=== PATIENT | male | born 1945 | race Caucasian/White ===

== ENCOUNTER → 2023-12-26 09:00 | Outpatient (REF) | payer MEDICARE, OTHER, SELFPAY | LOC: DHSLP 09:00 | PROVIDERS: ATTENDING PHYSICIAN Internal Medicine Critical Care Medicine; FAMILY PHYSICIAN Nurse Practitioner | DX: G47.33 Obstructive sleep apnea (adult) (pediatric) (principal) | CPT/HCPCS: 95800 ==

== ENCOUNTER → 2024-03-27 13:46 | Outpatient (REF) | payer MEDICARE, OTHER, SELFPAY | LOC: RCS 13:46 | PROVIDERS: ATTENDING PHYSICIAN Internal Medicine Cardiovascular Disease; FAMILY PHYSICIAN Nurse Practitioner | DX: R06.02 Shortness of breath (principal) | CPT/HCPCS: 93306 ==

== ENCOUNTER → 2025-03-05 15:43 | Outpatient (REF) | payer MEDICARE, OTHER, SELFPAY | LOC: RAD 15:43 | PROVIDERS: ATTENDING PHYSICIAN Nurse Practitioner Adult Health; FAMILY PHYSICIAN Nurse Practitioner | DX: M47.814 Spondylosis without myelopathy or radiculopathy, thoracic region (principal); M48.062 Spinal stenosis, lumbar region with neurogenic claudication | CPT/HCPCS: 72072; 72110 ==

== ENCOUNTER 2025-03-18 22:47 | Inpatient (IN) | payer MEDICARE, OTHER, SELFPAY ==
[2025-03-18] VITALS (8 sets, daily range): BP systolic 108–175; BP diastolic 57–96; BMI 24.2
[2025-03-18 16:50] LABS: Hematocrit 43.6 % (39.0-52.0); Hemoglobin 14.1 g/dL (13.0-18.0); Mean Corp Hgb Conc. 32.3 g/dL (33.0-37.0); Mean Corpuscular Volume 79.4 fL (80.0-94.0); Nucleated Red Blood Cells % 0 % (-); Platelet Count 210 10^3/uL (130-400); Red Cell Dist. Width 14.7 % (11.5-14.5)
[2025-03-18 17:16] LABS: ALT (SGPT) 21 U/L (0-50); AST (SGOT) 34 U/L (17-59); Albumin 4.7 g/dl (3.5-5.0); Alkaline Phosphatase 103 U/L (38-126); Blood Urea Nitrogen 16 mg/dl (9-20); Calcium 10.1 mg/dl (8.4-10.2); Carbon Dioxide 22 mmol/L (22-30); Chloride 104 mmol/L (98-107); Glucose 216 mg/dl (70-99); Lipase 125 U/L (23-300); Potassium 5.2 mmol/L (3.5-5.1); Sodium 137 mmol/L (135-145); Total Protein 7.0 g/dl (6.3-8.2); eGFR > 60.00
[2025-03-18 17:19] LABS: Troponin I 0.050 ng/ml
--- NOTE | 2025-03-18 17:49 | ED.GENMED ---
History of Present Illness
<Sabino Lackey PA-C - Last Filed: 03/19/25 00:24>
General
Chief Complaint: Chest Pain
Time Seen by Provider: 03/18/25 17:36
History of Present Illness
History of Present Illness:
79-year-old male with history of CAD status post UT with cardiac stent x 2, hypertension, hyperlipidemia, and insulin-dependent diabetes presents to the emergency department for evaluation of left/central chest pain that began approximately 2 hours
prior to arrival. He states he just completed eating a sandwich and was watching TV when the pain began. He has had anginal symptoms in the past and has followed with his lip cutter and scorer through [facility] for this, it has been quite
sometime since he underwent any type of cardiac ischemic workup per his records that he provides at the bedside. Patient notes to me on my evaluation that his pain has since resolved within the past 10 to 15 minutes. He did take nitroglycerin as
well as an acids but did not feel as though these helped at home. No associated fevers or chills. Denies any acute shortness of breath but does have decreased exercise tolerance recently.
Past History
<Sabino Lackey PA-C - Last Filed: 03/19/25 00:24>
Past History
ED Past Medical History: CAD, Hypercholesterolemia, IDDM and Other (Kidney stones, coronary disease status post stent, chronic low back pain, diabetes)
ED Past Surgical History: Cardiac (stent)
Social History
Tobacco: Non-smoker
Alcohol: Occasional
Drug: None
Personal:
Living: with family
Family History
Family History: Other (He thinks his father had an episode of urinary retention in the past)
Review of Systems
<Sabino Lackey PA-C - Last Filed: 03/19/25 00:24>
Review of Systems
Allergies reviewed?: Yes
All Other Systems: ROS reviewed and negative except as documented in HPI and ROS
Phy Exam
<Sabino Lackey PA-C - Last Filed: 03/19/25 00:24>
Physical Exam
Physical Exam:
GEN: Well appearing, NAD, WDWN
HEENT: Oral mucosa moist, no scleral icterus
Cardiac: Regular rate and rhythm, no murmurs
Lung: No respiratory distress, no tachypnea, lungs clear to auscultation bilaterally
MSK: No gross deformity or injuries
Skin: Good color, no pallor or jaundice, no rashes
Neuro: AO x3, moves all extremities freely
Psych: Calm, cooperative
Scores
<Sabino Lackey PA-C - Last Filed: 03/19/25 00:24>
Heart Score for Chest Pain Patients
STEMI patient?: No
History: Slightly or Non-Suspicious
ECG: Nonspecific Repolarization
Age: >/= 65 years
Risk Factors: >/= 3 Risk Factors or History of CAD
Troponin: >/= 3 x Normal Limit
Heart Score for Chest Pain Patients: 7
Heart Score Risk: 72.7 % MACE over next 6 weeks
<Adriel Freeman MD - Last Filed: 03/19/25 10:13>
Heart Score for Chest Pain Patients
Heart Score for Chest Pain Patients: 7
Heart Score Risk: 72.7 % MACE over next 6 weeks
Course
<Sabino Lackey PA-C - Last Filed: 03/19/25 00:24>
Orders/Labs/Results
Orders:
Orders
03/18/25 16:22
Electrocardiogram (*1) Urgent
Reason for Study: Chest Pain
EKG- Treatment ONCE
03/18/25 16:39
Complete Blood Count/With Diff Urgent
Comprehensive Metabolic Panel Urgent
Lipase Urgent
Troponin I Urgent
03/18/25 17:40
Electrocardiogram (*1) Urgent
Reason for Study: Chest Pain
EKG- Treatment ONCE
03/18/25 17:51
Aspirin Chewable [Low Strength Aspirin] 324 mg PO NOW STA
03/18/25 20:03
Troponin I Urgent
03/18/25 20:49
Heparin 4,000 units IV NOW STA
Nursing to Place Non Medication Order As Directed
Physician Order: PTT 6 hours after initial start of Heparin infusion
Above order entered?: Yes
03/18/25 21:00
Heparin 52704 Units/250 ml 25,000 units in 250 ml IV PER PROTOCOL
Weight to be used for heparin protocol in kilograms (kg):: 76.4
Protocol:: Cardiac Tx/Acute Coronary
PTT Goal Range to be used:: PTT 73 to 111 seconds
Order type:: Initial
INITIAL Infusion Dose (UNITS/KG/hr) & then follow protocol:: 12 units/kg/hr
Infusion Dose in UNITS/hr & then follow protocol (UNITS/hr):: 900
INFUSION RATE in mL/hr & then follow protocol (mL/hr):: 9
PTT less than or equal to 64 seconds:: Increase rate by 200 units/hr (+ 2 mL/hr)
PTT 64.1 to 72.9 seconds:: Increase rate by 100 units/hr (+ 1 mL/hr)
PTT 73 to 111 seconds:: Target Range. No change in rate.
PTT 111.1 to 130.9 seconds:: Decrease rate by 100 units/hr (- 1 mL/hr)
PTT 131 to 199.9 seconds:: HOLD for 1 hr. Then decrease rate by 200 units/hr (- 2 mL/hr)
PTT greater than or equal to 200 seconds:: HOLD for 2 hrs & Notify Provider. Then decrease by 200 units/hr (-
2 mL/hr)
Lab follow-up:: Each change, PTT q6h until 2 consecutive are therapeutic. Then PTT
daily.
03/18/25 21:30
PTT Urgent
03/18/25 22:23
Admit/Transfer Patient As Directed
Co-Sign Provider:
Level of Care: Inpatient admission
Assign to:: IVU
Physician / Group: Nayely Bills - beccaists
Diagnosis: NSTEMI
Reason for Hospitalization: NSTEMI - IV heparin, cardiac eval for potential cath
Expected length of stay greater than two midnights?: Yes
ELOS- Estimated Length of Stay in days: 3
I certify the patient meets the requirements for IP care: Yes
PRN Pain Medication Management As Directed
May give lesser potent ordered pain med per pt: Yes
preference::
Protocol:: Medication orders for pain may be administered in a
manner that supports deferring to patient preference
when the pt is:
- Requesting an ordered lesser potent pain medication.
Least to most potent pain medications are defined
as: acetaminophen < NSAID < tramadol < opioids
(morphine, oxycodone, hydromorphone).
- Requesting a lesser dose of the same medication IF
ORDERED.
- Requesting a less intrusive route of administration
if both routes are prescribed by the provider (PO <
IV).
03/18/25 22:25
Code Status As Directed
Resuscitation Status: Full Code
03/18/25 23:25
Acetaminophen [Tylenol] 650 mg PO Q4HPRN PRN
Bisacodyl [Dulcolax] 10 mg RECTAL [id number] PRN
Dextrose 50%-Water [Dextrose 50% Syringe] 12.5 grams IV [id number] PRN
Docusate W/Senna [Senokot-S] 1 tablet PO BIDPRN PRN
Glucagon [GlucaGen] 1 mg IM PRN PRN
Ondansetron Injectable [Zofran] 4 mg IV Q6HPRN PRN
Polyethylene Glycol Powder [Miralax] 17 grams PO DAILYPRN PRN
Sertraline HCl [Zoloft] 100 mg PO HS
Zolpidem Tartrate [Ambien] 5 mg PO HS
insulin glargine [Lantus Solostar U-100 Insulin] 16 unit SC HS
03/18/25 23:25
CARDIOLOGY CONSULT Routine
Consulting Provider: Helder Hernandez
Was physician already notified: Yes
Activity As Directed
Activity Level: As Tolerated
Bedside Glucose Monitoring As Directed
Frequency: AC&HS
Additional Instructions:: Change to q6h if pt on TPN, tube feeding or not eating
Pneumatic Compression Sleeves As Directed
Type: Knee high
Vital Signs As Directed
Frequency: Per unit guidelines
Rx Incentive Spirometry [RESP] Routine
Frequency: q1h while awake
DX Deep Vein Thrombosis Video Routine
03/19/25 02:09
Basic Metabolic Panel IN AM
Cardiovascular Evaluation IN AM
Complete Blood Count/No Diff IN AM
Glycohemoglobin (HgbA1c) IN AM
PTT Urgent
Troponin I Q6H
03/19/25 Breakfast
NPO
Allow oral meds: Yes
Allow clear liquids: No
03/19/25 07:30
Insulin Aspart Corrective Low [Novolog Flexpen-Low Resistance] See Protocol SC AC
03/19/25 08:00
Aspirin Low Dose EC [Aspir Low (Enteric Coated)] 81 mg PO DAILY
Atenolol [Tenormin] 50 mg PO DAILY
Bupropion(24Hr)Extended Releas [WELLBUTRIN XL (24 hour extended release)] 300 mg PO DAILY
Ezetimibe [Zetia] 10 mg PO DAILY
Fenofibrate 145 [Tricor] 145 mg PO DAILY
Finasteride [Proscar] 5 mg PO DAILY
Rosuvastatin Calcium [Crestor] 20 mg PO DAILY
Abnormal Lab Results
03/18/25 03/18/25 03/18/25
16:39 20:03 21:30
MCV 79.4 L fL
(80.0-94.0)
MCH 25.7 L pg
(27.0-31.0)
MCHC 32.3 L g/dL
(33.0-37.0)
RDW 14.7 H %
(11.5-14.5)
Eosinophils % 7.4 H %
(0-6)
APTT > 200 H* Sec
(23.4-35.0)
Potassium 5.2 H mmol/L
(3.5-5.1)
Glucose 216 H mg/dl
(70-99)
Troponin I 0.050 H* ng/ml 2.820 H* D ng/ml
03/18/25 16:39
03/18/25 16:39
Vital Signs
Initial and Last Documented VS:
Initial Vital Signs
Temp Pulse Resp BP Pulse Ox
97.8 F 73 18 174/88 98
03/18/25 16:28 03/18/25 16:28 03/18/25 16:28 03/18/25 16:28 03/18/25 16:28
Last Documented Vital Signs
Temp Pulse Resp BP Pulse Ox
98.0 F 75 16 148/77 94
03/19/25 07:42 03/19/25 08:50 03/19/25 07:42 03/19/25 08:50 03/19/25 07:42
<Adriel Freeman MD - Last Filed: 03/19/25 10:13>
Orders/Labs/Results
Orders:
Orders
03/18/25 16:22
Electrocardiogram (*1) Urgent
Reason for Study: Chest Pain
EKG- Treatment ONCE
03/18/25 16:39
Complete Blood Count/With Diff Urgent
Comprehensive Metabolic Panel Urgent
Lipase Urgent
Troponin I Urgent
03/18/25 17:40
Electrocardiogram (*1) Urgent
Reason for Study: Chest Pain
EKG- Treatment ONCE
03/18/25 17:51
Aspirin Chewable [Low Strength Aspirin] 324 mg PO NOW STA
03/18/25 20:03
Troponin I Urgent
03/18/25 20:49
Heparin 4,000 units IV NOW STA
Nursing to Place Non Medication Order As Directed
Physician Order: PTT 6 hours after initial start of Heparin infusion
Above order entered?: Yes
03/18/25 21:00
Heparin 62443 Units/250 ml 25,000 units in 250 ml IV PER PROTOCOL
Weight to be used for heparin protocol in kilograms (kg):: 76.4
Protocol:: Cardiac Tx/Acute Coronary
PTT Goal Range to be used:: PTT 73 to 111 seconds
Order type:: Initial
INITIAL Infusion Dose (UNITS/KG/hr) & then follow protocol:: 12 units/kg/hr
Infusion Dose in UNITS/hr & then follow protocol (UNITS/hr):: 900
INFUSION RATE in mL/hr & then follow protocol (mL/hr):: 9
PTT less than or equal to 64 seconds:: Increase rate by 200 units/hr (+ 2 mL/hr)
PTT 64.1 to 72.9 seconds:: Increase rate by 100 units/hr (+ 1 mL/hr)
PTT 73 to 111 seconds:: Target Range. No change in rate.
PTT 111.1 to 130.9 seconds:: Decrease rate by 100 units/hr (- 1 mL/hr)
PTT 131 to 199.9 seconds:: HOLD for 1 hr. Then decrease rate by 200 units/hr (- 2 mL/hr)
PTT greater than or equal to 200 seconds:: HOLD for 2 hrs & Notify Provider. Then decrease by 200 units/hr (-
2 mL/hr)
Lab follow-up:: Each change, PTT q6h until 2 consecutive are therapeutic. Then PTT
daily.
03/18/25 21:30
PTT Urgent
03/18/25 22:23
Admit/Transfer Patient As Directed
Co-Sign Provider:
Level of Care: Inpatient admission
Assign to:: IVU
Physician / Group: Nayely Bills - hospitalists
Diagnosis: NSTEMI
Reason for Hospitalization: NSTEMI - IV heparin, cardiac eval for potential cath
Expected length of stay greater than two midnights?: Yes
ELOS- Estimated Length of Stay in days: 3
I certify the patient meets the requirements for IP care: Yes
PRN Pain Medication Management As Directed
May give lesser potent ordered pain med per pt: Yes
preference::
Protocol:: Medication orders for pain may be administered in a
manner that supports deferring to patient preference
when the pt is:
- Requesting an ordered lesser potent pain medication.
Least to most potent pain medications are defined
as: acetaminophen < NSAID < tramadol < opioids
(morphine, oxycodone, hydromorphone).
- Requesting a lesser dose of the same medication IF
ORDERED.
- Requesting a less intrusive route of administration
if both routes are prescribed by the provider (PO <
IV).
03/18/25 22:25
Code Status As Directed
Resuscitation Status: Full Code
03/18/25 23:25
Acetaminophen [Tylenol] 650 mg PO Q4HPRN PRN
Bisacodyl [Dulcolax] 10 mg RECTAL [id number] PRN
Dextrose 50%-Water [Dextrose 50% Syringe] 12.5 grams IV [id number] PRN
Docusate W/Senna [Senokot-S] 1 tablet PO BIDPRN PRN
Glucagon [GlucaGen] 1 mg IM PRN PRN
Ondansetron Injectable [Zofran] 4 mg IV Q6HPRN PRN
Polyethylene Glycol Powder [Miralax] 17 grams PO DAILYPRN PRN
Sertraline HCl [Zoloft] 100 mg PO HS
Zolpidem Tartrate [Ambien] 5 mg PO HS
insulin glargine [Lantus Solostar U-100 Insulin] 16 unit SC HS
03/18/25 23:25
CARDIOLOGY CONSULT Routine
Consulting Provider: Helder Hernandez
Was physician already notified: Yes
Activity As Directed
Activity Level: As Tolerated
Bedside Glucose Monitoring As Directed
Frequency: AC&HS
Additional Instructions:: Change to q6h if pt on TPN, tube feeding or not eating
Pneumatic Compression Sleeves As Directed
Type: Knee high
Vital Signs As Directed
Frequency: Per unit guidelines
Rx Incentive Spirometry [RESP] Routine
Frequency: q1h while awake
DX Deep Vein Thrombosis Video Routine
03/19/25 02:09
Basic Metabolic Panel IN AM
Cardiovascular Evaluation IN AM
Complete Blood Count/No Diff IN AM
Glycohemoglobin (HgbA1c) IN AM
PTT Urgent
Troponin I Q6H
03/19/25 Breakfast
NPO
Allow oral meds: Yes
Allow clear liquids: No
03/19/25 07:30
Insulin Aspart Corrective Low [Novolog Flexpen-Low Resistance] See Protocol SC AC
03/19/25 08:00
Aspirin Low Dose EC [Aspir Low (Enteric Coated)] 81 mg PO DAILY
Atenolol [Tenormin] 50 mg PO DAILY
Bupropion(24Hr)Extended Releas [WELLBUTRIN XL (24 hour extended release)] 300 mg PO DAILY
Ezetimibe [Zetia] 10 mg PO DAILY
Fenofibrate 145 [Tricor] 145 mg PO DAILY
Finasteride [Proscar] 5 mg PO DAILY
Rosuvastatin Calcium [Crestor] 20 mg PO DAILY
Abnormal Lab Results
09/15/25 09/15/25 09/15/25
16:39 20:03 21:30
MCV 79.4 L fL
(80.0-94.0)
MCH 25.7 L pg
(27.0-31.0)
MCHC 32.3 L g/dL
(33.0-37.0)
RDW 14.7 H %
(11.5-14.5)
Eosinophils % 7.4 H %
(0-6)
APTT > 200 H* Sec
(23.4-35.0)
Potassium 5.2 H mmol/L
(3.5-5.1)
Glucose 216 H mg/dl
(70-99)
Troponin I 0.050 H* ng/ml 2.820 H* D ng/ml
03/18/25 16:39
03/18/25 16:39
Vital Signs
Initial and Last Documented VS:
Initial Vital Signs
Temp Pulse Resp BP Pulse Ox
97.8 F 73 18 174/88 98
03/18/25 16:28 03/18/25 16:28 03/18/25 16:28 03/18/25 16:28 03/18/25 16:28
Last Documented Vital Signs
Temp Pulse Resp BP Pulse Ox
98.0 F 75 16 148/77 94
03/19/25 07:42 03/19/25 08:50 03/19/25 07:42 03/19/25 08:50 03/19/25 07:42
<Sabino Lackey PA-C - Last Filed: 03/19/25 00:24>
MDM/Problems Addressed
MDM/Problems Addressed:
After initial evaluation patient remained chest pain-free. I did noted an irregularity in V2 and V3 with T wave flattening on his initial EKG that subsequently resolved. Given the lack of active chest pain and only slight elevated troponin we
opted to repeat troponin before proceeding with heparin, this came back markedly elevated and the patient was promptly started on heparin. No nitroglycerin was needed as he remained pain-free. Will be admitted to the hospitalist service for
further management of an NSTEMI, cardiology consulted for inpatient management as well
<Sabino Lackey PA-C - Last Filed: 03/19/25 00:24>
Comment
Comment:
Initial EKG performed at 1626 shows normal sinus rhythm with T wave flattening in V2 and V3 compared to prior tracings
Repeat EKG taken at 1743 shows resolution of this T wave abnormality
*Pulse Oximetry
SaO2: 96
Oxygen Mode of Delivery: Room air
Patient hypoxic: no
*Critical Care Note
Total Time (30-74mins, 75-104mins- exclusive of procedures): 35 mins
comment:
Critical care time: 35 minutes
Critical care time was exclusive of: Separately billable procedures, treating other patients, and teaching time
Critical care was necessary to treat or prevent imminent or life-threatening deterioration of the following conditions: NSTEMI
Critical care time spent personally by me on the following activities:
[x] Review of old charts
[x] Obtaining history from patient or surrogate
[x] Ordering and review of the laboratory studies
[x] Ordering and review of radiographic studies
[x] Ordering and performing treatments and interventions
[x] Patient patient's response to treatment
[x] Development of treatment plan with patient or surrogate
<Sabino Lackey PA-C - Last Filed: 03/19/25 00:24>
Update Note
Update Note:
Please note that the initial PTT level of greater than 200 is erroneous. The initial specimen was drawn as ordered by nursing staff however due to a lab error a result was not provided. A redraw was requested however the patient had received the
heparin bolus prior to this thus creating the artifactually elevated PTT. I have recommended we continue initial heparin dosing until 6-hour redraw and further dosing recommendations to be adjusted at that time
ED Attending Note
<Sabino Lackey PA-C - Last Filed: 03/19/25 00:24>
-
Portions of this chart may have been created with voice recognition software.� Occasional wrong word or��sound alike� substitutions may have occurred due to the inherent limitations of voice recognition software.
<Adriel Freeman MD - Last Filed: 03/19/25 10:13>
ED Attending Note
Patient seen and examined by attending physician: Yes
ED Attending Note:
Patient with history of UT with 2 previous cardiac stents, presents to ED secondary to recurrent left-sided chest pain that lasted approximately 2 hours, associated with diaphoresis and 'not feeling well'. Denies shortness of breath. Denies nausea
or vomiting. Denies dizziness. Chest pain described as pressure, nonradiating, similar to what he experienced with previous UT but more severe w symptoms. At the time of evaluation ED, patient states that his chest pain had resolved completely.
Denies recent illness. Denies recent travel or surgery. Denies back pain. Denies leg pain or swelling.
Physical Exam
General: no apparent distress, not acutely ill. afebrile
Head: nc/at. eomi
Neck: supple. normal range of motion.
Heart: s1/s2 regular rate and rhythm
Lungs: no acute respiratory distress. clear bilaterally
Abdomen: normal bowel sounds. not tender.
Neuro: alert and oriented x 3. no focal neurological deficits
Skin: no rash
Psychiatric: well kept. interactive and cooperative
Extremities: no edema. no calf tenderness.
EKG without any acute ST changes. Patient remains chest pain-free during evaluation in ED.
History, exam, and blood work concerning for non-STEMI. Discussed with on-call cardiology, Dr. Hernandez. Patient will be admitted on heparin protocol, with likely cardiac catheterization tomorrow.
Discharge Plan
Departure
Patient Disposition: Admit
Date of Disposition: 03/18/25
Time of Disposition: 20:55
Admit to: IVU
Presentation/result/management discussed w/ accepting MD/DO: Hospitalist
Discharge Problem:
Non-ST elevation UT (NSTEMI)
Interventions
Interventions:
*Risk Screen - Suicide Last Done: 03/19/25 01:13
*General Assessment Last Done: 03/18/25 17:49
*Neglect/Abuse Screening Last Done: 03/18/25 17:49
*ED- Fall Risk Assessment Last Done: 03/18/25 17:49
*Nursing Disposition Last Done: 03/19/25 01:19
ED- Cardiac Assessment Last Done: 03/18/25 17:49
Discharge Date and Time
Discharge Date/Time: 03/19/25 01:20
[2025-03-18] MEDS: LOW STRENGTH ASPIRIN 324 MG PO (17:54)
[2025-03-18 20:38] LABS: Troponin I 2.820 ng/ml
[2025-03-18] MEDS: HEPARIN 4000 UNITS IV (21:21)
[2025-03-18] MEDS: HEPARIN 25000 UNITS/250 ML IV (21:25)
[2025-03-18 22:08] LABS: APTT > 200 Sec (23.4-35.0)
--- NOTE | 2025-03-18 22:13 | EDRN ---
PTT >200 results discussed with JORGE A Cheng, PTT was drawn after initial heparin 4,000 bolus, JORGE A Cheng orders to continue initial Heparin infusion rate and continue with the 6 hour redraw time of 0330 to determine titration.
--- NOTE | 2025-03-18 22:14 | HPS.HSE ---
Family Physician
-
Family Physician: MAINOR [email or web address]
Chief Complaint
-
Chest pain
History of Present Illness
79 y/o M hx of CAD s/p 2 stents, HTN, HLD, IDDM presents to ER with chest pain. He reports the pain developed at 2pm - characterized as dull, 7/10, with bilateral chest pain and radiation to back and shoulders. He took Nitro and antacids without
relief. Symptoms persisted prompting visit to ER. Denies any SOB or palpitations, no fever/chills. By time of arrival into ER, pain was resolved. Patients troponin was elevated, concerning for NSTEMI. IV heparin was started and patient admitted for
further management.
Medical History
Past Medical History
Past Medical History: Reports Other (CAD s/p 2 stents, HTN, HLD, IDDM )
Past Surgical History: Reports Cardiac (cardiac stents)
Social History
Tobacco: Non-smoker
Alcohol: Occasional
Drug: None
Personal:
Living: With Family
Family History
Family History: Not pertinent
Allergies / Home Medications
Allergies reflects when Allergies were last updated in [facility].
Home Medications with original date entered in [facility]
Allergy/Medication List:
Allergies
Allergy/AdvReac Type Severity Reaction Status Date / Time
house dust Allergy sneezing, Verified 10/22/21 11:31
nasal
congestion
house dust mite Allergy sneezing, Verified 10/22/21 11:32
nasal
congestion
No Known Drug Allergies Allergy Unknown Verified 09/05/21 21:10
pollen Allergy sneezing, Uncoded 09/05/21 21:10
nasal
congestion
Home Medications
atenolol 50 mg tablet 50 mg PO DAILY 09/05/21
bupropion HCl 300 mg 24 hr tablet, extended release 300 mg PO DAILY 09/05/21
ezetimibe 10 mg tablet 10 mg PO DAILY 09/05/21
fenofibrate 160 mg tablet 160 mg PO DAILY 09/05/21
rosuvastatin 20 mg tablet 20 mg PO DAILY 09/05/21
oxycodone 15 mg tablet 15 mg PO Q12 3 days #6 tabs 09/07/21
aspirin 81 mg tablet,delayed release 81 mg PO DAILY 03/18/25
dextroamphetamine-amphetamine 20 mg tablet (Adderall) 20 mg PO PRN PRN add 03/18/25
fexofenadine 30 mg tablet 60 mg PO DAILY 03/18/25
finasteride 5 mg tablet 5 mg PO DAILY 03/18/25
insulin glargine 100 unit/mL (3 mL) subcutaneous pen (Lantus Solostar U-100 Insulin) 32 unit SC HS 03/18/25
metformin 1,000 mg tablet 1,000 mg PO BID 03/18/25
morphine 15 mg tablet,extended release 15 mg PO PRN PRN pain 03/18/25
sertraline 100 mg tablet 100 mg PO HS 03/18/25
sumatriptan succinate 25 mg tablet 25 mg PO PRN PRN headache 03/18/25
tamsulosin 0.4 mg capsule 0.4 mg PO .TWICE A WEEK 03/18/25
valsartan 40 mg tablet 160 mg PO DAILY 03/18/25
zolpidem 5 mg tablet 5 mg PO HS 03/18/25
Review of Systems
-
A 12 point ROS was completed and negative except as noted: Yes
Physical Exam
Vital Signs
Vital Signs
Temp Pulse Resp BP Pulse Ox
97.8 F 71 15 149/70 94
03/18/25 16:28 03/18/25 20:15 03/18/25 20:15 03/18/25 20:00 03/18/25 20:00
Physical Exam
General: No Apparent Distress
HEENT: NormoCephalic and Anicteric
Respiratory: Clear; No Wheezes or Rales
Cardiac: S1/S2 and Regular Rhythm
GI: Soft and Non Tender
Neuro: AO x 3
Psych: Calm
Laboratory Results
-
03/18/25 16:39
03/18/25 16:39
Laboratory Results
APTT > 200 Sec (23.4-35.0) H* 03/18/25 21:30
Total Bilirubin 0.7 mg/dl (0.2-1.3) 03/18/25 16:39
AST 34 U/L (17-59) 03/18/25 16:39
ALT 21 U/L (0-50) 03/18/25 16:39
Alkaline Phosphatase 103 U/L (38-126) 03/18/25 16:39
Troponin I 2.820 ng/ml H* D 03/18/25 20:03
Lipase 125 U/L (23-300) 03/18/25 16:39
Data Reviewed
-
Medical Tests (Nuc Med, Echo, EKG etc): Report Reviewed by me and Discussed with Patient
Lab Data: Labs Reviewed by me and Discussed with Patient
Impression/Plan
-
Assessment:
Acute NSTEMI
CAD s/p 2 stents
- IVU
- Echo
- IV heparin drip
- continue ASA/statin/BB
- trend trops to peak
- tele and AM EKG
- CBC cards consulted
Essential HTN
- hold ARB
- continue BB
HLD - fibrates/statin
IDDM
- hold Metformin in case of cath
- Lantus at 1/2 dose of normal 32 units (16 units)
- SSI
- A1c
DVT ppx: IV heparin
Code: Full
[2025-03-19] VITALS (19 sets, daily range): BP systolic 121–175; BP diastolic 67–109; BMI 23.6
[2025-03-19 01:13] LABS: Glucose - Point of Care 105 mg/dl (70-99)
[2025-03-19] MEDS: LANTUS 0.16 UNITS SC ×2 (01:30→22:41)
[2025-03-19] MEDS: AMBIEN 5 MG PO (01:30)
[2025-03-19] MEDS: ZOLOFT 100 MG PO ×2 (01:30→22:41)
[2025-03-19 02:20] LABS: Hematocrit 40.2 % (39.0-52.0); Hemoglobin 13.2 g/dL (13.0-18.0); Mean Corp Hgb Conc. 32.8 g/dL (33.0-37.0); Mean Corpuscular Volume 80.2 fL (80.0-94.0); Platelet Count 224 10^3/uL (130-400); Red Cell Dist. Width 14.7 % (11.5-14.5)
[2025-03-19 02:30] LABS: APTT 48.5 Sec (23.4-35.0)
[2025-03-19] MEDS: TUMS CHEWABLE TABLET 200 MG PO (02:31)
[2025-03-19 02:41] LABS: Blood Urea Nitrogen 13 mg/dl (9-20); Calcium 9.8 mg/dl (8.4-10.2); Carbon Dioxide 23 mmol/L (22-30); Chloride 107 mmol/L (98-107); Estimated Creatinine Clearance 91 ml/min; Glucose 105 mg/dl (70-99); HDL Cholesterol 60 mg/dl; LDL Cholesterol, Calculated 39 mg/dl; Potassium 4.8 mmol/L (3.5-5.1); Sodium 137 mmol/L (135-145); Very Low Density Lipoprotein 23 mg/dl (0-30); eGFR > 60.00
--- NOTE | 2025-03-19 02:46 | PTCARENOTE ---
Patient received from ED as admission for NSTEMI at 0100. Heparin gtt infusing at 900units/hr. Ambulated from stretcher to bed, x1 assist. Admission questions completed, see worklist. The patient reported no chest pain at time of admission but did
endorse chronic low back pain. Sinus rhythm on telemetry. Oxygen saturation 94-97% on room air. Discussed plan of care including NPO status. Fall risk bracelet applied as the patient reported a recent fall. Call polk within reach.
The patient reported feeling like he was having reflux/heartburn at approximately 0145 and was requesting an antacid. An EKG was completed. House OPERATIONS EXAMINER Jessica notified. One time dose of Tums ordered and given. Discussed with patient to please call if
the heartburn does not subside or if he starts to experience chest pain or discomfort. AM labs drawn and sent .Call polk within reach. Care ongoing
[2025-03-19 03:09] LABS: Troponin I 11.900 ng/ml
[2025-03-19 03:28] LABS: Hepatitis C Antibody Negative (Negative)
[2025-03-19] MEDS: ROXICODONE 15 MG PO ×3 (03:41→20:55)
--- NOTE | 2025-03-19 03:43 | PTCARENOTE ---
Upon entering the patient's room to reassess heartburn the patient was noted to be sleeping, respiratory pattern normal, HR in the 60s. Patient woken up for one time order of Oxycodone for his chronic low back pain that he was previously requesting.
Per the patient his heartburn is improved following Tums. One time dose of oxycodone given as ordered, see MAR. Care ongoing.
--- NOTE | 2025-03-19 04:44 | PTCARENOTE ---
Patient found to be out of bed with his jackerman off. The patient reported he needed to use the restroom to urinate. Assisted patient to the bathroom to void. Bed and chair alarm placed. Reinforced use of the call polk and asking for
assistance with ambulating due to high fall risk status. The patient does report that he feels much better than when he was first admitted. Bed in lowest position, wheels locked. Call polk within reach. Care ongoing.
--- NOTE | 2025-03-19 07:42 | CON.CAR ---
Addendum entered and electronically signed by Helder Hernandez MD 03/19/25 10:41:
I saw and evaluated the patient, and I provided the substantive portion of the medical decision making.
I reviewed and agree with the note by MAINOR Kauffman and it accurately reflects our care.
I personally performed the medical decision making of the this encounter and my assessment and plan is below:
Known CAD, several prior stents, but no stent in many years
2 hours of CP yesterday
EKG with mild ST abnormality
Trop peaked 11.9
Comorbid: HTN, lipds, DM, Migraines
? does he have mild cognitive impairment => his recall is not sharp as it should be
Suggest
Cath with revascularization
Hope to avoid CABG/pump run given my concern for his cognitive function
Card: Molina Tolbert , [facility]
Original Note:
Consultation
Consultation Request
Date/Time Consultation Requested: 03/18/2025 23:25
Date/Time Consultation Performed: 03/19/2025 07:40
Requesting Provider: Dr. Bills
Performing Provider: MAINOR Kauffman for Dr. Hernandez
Reason for Consultation: Chest pain
Medical History
-
Chief Complaint: Chest pain
History of Present Illness:
Pal Rodriguez is a 79-year-old male (known to Dr. Tolbert at [facility]), with CAD (prior LAD PCI), hypertension, hypercholesterolemia, type 2 diabetes mellitus requiring insulin, BPH, and migraines presented to the emergency department
with a chief complaint of chest pain. His chest pain started at approximately 2 PM yesterday. He was not performing any exertional activity and was sitting on the couch. He reports a midsternal anterior chest ache that radiated into his
shoulders. He tried nitroglycerin and did not achieve full relief. He presented to the emergency department where he had an initial troponin of 0.050 and an EKG with nonspecific ST abnormality. He was admitted for further evaluation. Troponin is
currently trending up, most recently 11.900. He is chest pain-free at rest.
Past Medical History
Past Medical History: CAD (LAD PCI), HTN, Hypercholesterolemia, IDDM and Other (migraines, BPH)
Past Surgical History: Orthopedic
Social History
Tobacco: Non-Smoker
Alcohol: Occasional
Drug: None
Personal:
Living: With Family
Employment: Retired
Family History
Family History: Reviewed & Not Pertinent
Allergies / Home Medications
Allergy/AdvReac Type Severity Reaction Status Date / Time
house dust Allergy sneezing, Verified 10/22/21 11:31
nasal
congestion
house dust mite Allergy sneezing, Verified 10/22/21 11:32
nasal
congestion
No Known Drug Allergies Allergy Unknown Verified 09/05/21 21:10
pollen Allergy sneezing, Uncoded 09/05/21 21:10
nasal
congestion
�Medication �Instructions �Recorded �Confirmed �Type
atenolol 50 mg tablet 50 mg PO DAILY 09/05/21 03/18/25 History
bupropion HCl 300 mg 24 hr tablet, 300 mg PO DAILY 09/05/21 03/18/25 History
extended release
ezetimibe 10 mg tablet 10 mg PO DAILY 09/05/21 03/18/25 History
fenofibrate 160 mg tablet 160 mg PO DAILY 09/05/21 03/18/25 History
rosuvastatin 20 mg tablet 20 mg PO DAILY 09/05/21 03/18/25 History
oxycodone 15 mg tablet 15 mg PO Q12 3 days #6 tabs 09/07/21 03/18/25 Rx
aspirin 81 mg tablet,delayed 81 mg PO DAILY 03/18/25 03/18/25 History
release
dextroamphetamine-amphetamine 20 20 mg PO PRN PRN add 03/18/25 03/18/25 History
mg tablet (Adderall)
fexofenadine 30 mg tablet 60 mg PO DAILY 03/18/25 03/18/25 History
finasteride 5 mg tablet 5 mg PO DAILY 03/18/25 03/18/25 History
insulin glargine 100 unit/mL (3 32 unit SC HS 03/18/25 03/18/25 History
mL) subcutaneous pen (Lantus
Solostar U-100 Insulin)
metformin 1,000 mg tablet 1,000 mg PO BID 03/18/25 03/18/25 History
morphine 15 mg tablet,extended 15 mg PO PRN PRN pain 03/18/25 03/18/25 History
release
sertraline 100 mg tablet 100 mg PO HS 03/18/25 03/18/25 History
sumatriptan succinate 25 mg tablet 25 mg PO PRN PRN headache 03/18/25 03/18/25 History
tamsulosin 0.4 mg capsule 0.4 mg PO .TWICE A WEEK 03/18/25 03/18/25 History
valsartan 40 mg tablet 160 mg PO DAILY 03/18/25 03/18/25 History
zolpidem 5 mg tablet 5 mg PO HS 03/18/25 03/18/25 History
Review of Systems
-
History Source: Patient
All other systems: Negative unless noted
Constitutional: Fatigue
EENT: No Symptoms
Respiratory: No Symptoms
Cardiac: No Symptoms
Abdomen/GI: No Symptoms
: No Symptoms
Musculoskeletal: No Symptoms
Skin: No Symptoms
Neurological: No Symptoms
Endocrine: No Symptoms
Hematologic/Lymphatic: No Symptoms
Physical Exam
Vital Signs
Temp Pulse Resp BP Pulse Ox
98.1 F 78 14 140/79 94
03/19/25 02:19 03/19/25 06:00 03/19/25 02:19 03/19/25 03:43 03/19/25 02:19
Lab Results
03/19/25 02:09
03/19/25 02:09
Troponin I Cancelled 03/19/25 06:01
Physical Exam
General: Well Developed, Well Nourished, No Apparent Distress and Comfortable
HEENT: Normocephalic, Anicteric and Moist Mucous Membranes
Respiratory: Clear and Non Labored Respirations
Cardiac: S1/S2 and Regular Rhythm; Negative Peripheral Edema
Breast: Deferred by me
GI: Soft, Non Tender, Non Distended and Normal Bowel Sounds
Rectal: Deferred by Provider
Genito-urinary: No Costovertebral Tender
Musculoskeletal: No Clubbing and No Cyanosis
Skin: Warm and Dry
Neuro: AO x 3
Hematologic/Lymphatic: No Lymphadenopathy
Psych: Calm
Impression / Plan
-
I/P: 79M with CAD (prior LAD PCI), hypertension, hypercholesterolemia, type 2 diabetes mellitus, requiring insulin, BPH, and migraines presented to the emergency department with a chief complaint of chest pain.
Outpatient director [place] sales: Dr. Tolbert at [facility]
NSTEMI
-Currently chest pain-free
-Trend troponin to peak currently 11.900
-Echocardiogram today
-EKG with non specific ST abnormality
-Cardiac catherization today
Hypertension
-Valsartan held by primary for hyperkalemia (5.2), which improved
-Some blood pressures above goal, trend postprocedure
PVCs
-Couplet and triplet on telemetry, continue beta nu
Hypercholesterolemia
-Lipid panel: TC 122, LDL 39, HDL 60, TG 115
-Continue rosuvastatin 20 mg, fenofibrate 160 mg, and Zetia 10 mg
Type 2 diabetes mellitus requiring insulin
-Insulin management per primary service, HgbA1c pending
Migraines, type unknown, acute on chronic
-Has ~3 migraines per week, takes sumatriptan & morphine
-Consider switching sumatriptan, per primary
SUBJECTIVE:
As above.
Data Reviewed
-
EKG: Report Reviewed by me
Labs: Labs Reviewed by me
Old Records: Reviewed (ECW)
[2025-03-19 08:17] LABS: Glucose - Point of Care 99 mg/dl (70-99)
[2025-03-19] MEDS: NOVOLOG FLEXPEN-LOW RESISTANCE SC ×3 (08:40→16:23)
[2025-03-19] MEDS: ZETIA 10 MG PO (08:49)
[2025-03-19] MEDS: WELLBUTRIN XL (24 hour extended release) 300 MG PO (08:49)
[2025-03-19] MEDS: TRICOR 145 MG PO (08:49)
[2025-03-19] MEDS: CRESTOR 20 MG PO (08:49)
[2025-03-19] MEDS: ASPIR LOW (ENTERIC COATED) 81 MG PO (08:50)
[2025-03-19] MEDS: PROSCAR 5 MG PO (08:50)
[2025-03-19] MEDS: TENORMIN 50 MG PO (08:50)
[2025-03-19] MEDS: ANESTHETIC LOZENGE 1 LOZENGE PO ×2 (09:16→20:55)
[2025-03-19] MEDS: MS CONTIN (EXTENDED RELEASE) 15 MG PO (09:16)
--- NOTE | 2025-03-19 09:39 | PTCARENOTE ---
received patient this am lying in bed, c/o a migraine coming on and a sore throat with nonproductive cough. Zara DYNAMO REPAIRER aware, ordered MS Contin for migraine and lozenger for sore throat. IV heparin @ 1100units/hr. monitor shows NSR, VSS. patient is
[place], forgetful at times. lung ennis have crackles at bases bilat. and on RA 96%. patient is a FR and bed alarm remains on for safety.
[2025-03-19 09:46] LABS: APTT 50.8 Sec (23.4-35.0)
[2025-03-19 10:24] LABS: Troponin I 10.400 ng/ml
[2025-03-19 11:50] LABS: Glycohemoglobin (HgbA1c) 7.0 % (4.0-5.6)
[2025-03-19 12:49] LABS: Glucose - Point of Care 123 mg/dl (70-99)
--- NOTE | 2025-03-19 13:25 | CM ---
Reviewed chart. Met with prior Mr. Rodriguez to review discharge plans. He states prior to admission he resides with his spouse in a one story home without any steps to enter. He states prior to admission he was independent with ambulation and
adls.. He states he does not have any DME in the home. He states he has a prescription plan and uses [facility]. Medical work-up in progress. The discharge plan is to return home with his spouse when medically stable.
--- NOTE | 2025-03-19 13:41 | PTCARENOTE ---
patient called out c/o his 'occipital area up to his eyes in pain, 8 out of 10, requested his Roxicodone which he takes at home, TT Dr. De La Cruz, ordered Roxicodone 15mg po now. also patient continues to c/o sore throat, Lozenger po given as ordered.
--- NOTE | 2025-03-19 14:37 | W.PN.HOSP.TC ---
Today's Communication/Plan
-
cards recommending LHC
continue heparin drip per cards
avoid sumatriptan for migraine, compazine trial if needed
Assessment / Plan
Assessment / Plan
NSTEMI
CAD s/p 2 stents
- Trop max of 11.9, trending down
- on IV heparin drip
- continue ASA/statin/BB
- Cardiology inolved in care.
Essential HTN
- hold ARB
- continue BB
HLD - fibrates/statin
IDDM
- Hbga1c of 7.
- hold Metformin in case of cath
- Lantus at 1/2 dose of normal 32 units (16 units)
- SSI
Migraine
- have 3 episodes week
- avoid sumatriptan with active TX and vasoconstrictor effect
- provide oral narc. can provide IV compazine if needed
DVT ppx: IV heparin drip
Code: Full
Total time spent ; 52 mins
Anticipated Discharge: 24 - 48 hours
Subjective/Interval History
-
Date of Service: March 19, 2025
denies chest pain/sob/palpitation
have mild headache
Objective Data
-
Labs:
Laboratory Results
03/19/25 03/19/25 03/19/25
02:09 09:20 16:00
APTT 48.5 H 50.8 H Cancelled
Sodium 137
Potassium 4.8
Chloride 107
Carbon Dioxide 23
BUN 13
Creatinine 0.7
Glucose 105 H
Calcium 9.8
Vital Signs:
Vital Signs
Temp Pulse Resp BP Pulse Ox
98.1 F 58 16 148/77 95
03/19/25 11:50 03/19/25 11:50 03/19/25 11:50 03/19/25 08:50 03/19/25 11:50
Review of Systems
-
Respiratory: Reports No Symptoms
Cardiac: Reports No Symptoms
Abdomen/GI: Reports No Symptoms
Physical Exam
-
General: No Apparent Distress and Comfortable
HEENT: Negative Oxygen
Respiratory: Clear to Auscultation
Cardiac: Regular Rhythm and S1/S2; Negative Murmur or Rub
Musculoskeletal: No Edema
Neuro: Awake, Alert, Oriented, No Motor Deficits and Nonfocal/Grossly Intact
Psych: Calm
[2025-03-19 15:05] LABS: ACT-LR - POC 332 Seconds (116-155)
--- NOTE | 2025-03-19 15:58 | CONSULT.CT ---
Consultation
-
Date/Time Consultation Requested: 03/19/25 1600
Date/Time Consultation Performed: 03/19/25 1630
Requesting Provider: Lion FULLER
Performing Provider: Storm Lowe MD
Reason for Consultation: CABG eval
Patient History
Physicians
Family Physician: MAINOR Fonseca
Outpatient Court Recorder: Dr. Tolbert at [facility]
Inpatient Court Recorder: Dr. Hernandez/ Dr. Seymour
History of Present Illness
79-year-old male with past medical history of CAD s/p PCI to LAD, HTN, HLD, DM 2 on insulin, BPH, and migraines presents to [facility] emergency department with the chief complaint of chest pain. Chest pain radiating to his shoulders started yesterday
around 2 PM while sitting on the couch. Today while in the emergency room he was found to have an elevated troponin and an EKG with nonspecific ST abnormalities. He was started on a heparin infusion and taken to the cardiac Book Cutter. He was found
to have left main/LAD disease therefore CT surgery was consulted for CABG/MIDCAB evaluation.
Past Medical History
Past Medical History: BPH, CAD, HTN, Hypercholesterolemia and IDDM
Past Surgical History
Past Surgical History: Orthopedic and PCI/Stent
Family History
Family Medical History: CAD
Social History
Alcohol: Occasional
Drug: None
Tobacco: Non-Smoker
Personal:
Living: With Spouse
Employment: Retired
Allergies
Allergy/AdvReac Type Severity Reaction Status Date / Time
house dust Allergy sneezing, Verified 10/22/21 11:31
nasal
congestion
house dust mite Allergy sneezing, Verified 10/22/21 11:32
nasal
congestion
No Known Drug Allergies Allergy Unknown Verified 09/05/21 21:10
pollen Allergy sneezing, Uncoded 09/05/21 21:10
nasal
congestion
Home Medications
�Medication �Instructions �Recorded �Confirmed �Type
atenolol 50 mg tablet 50 mg PO DAILY 09/05/21 03/18/25 History
bupropion HCl 300 mg 24 hr tablet, 300 mg PO DAILY 09/05/21 03/18/25 History
extended release
ezetimibe 10 mg tablet 10 mg PO DAILY 09/05/21 03/18/25 History
fenofibrate 160 mg tablet 160 mg PO DAILY 09/05/21 03/18/25 History
rosuvastatin 20 mg tablet 20 mg PO DAILY 09/05/21 03/18/25 History
oxycodone 15 mg tablet 15 mg PO Q12 3 days #6 tabs 09/07/21 03/18/25 Rx
aspirin 81 mg tablet,delayed 81 mg PO DAILY 03/18/25 03/18/25 History
release
dextroamphetamine-amphetamine 20 20 mg PO PRN PRN add 03/18/25 03/18/25 History
mg tablet (Adderall)
fexofenadine 30 mg tablet 60 mg PO DAILY 03/18/25 03/18/25 History
finasteride 5 mg tablet 5 mg PO DAILY 03/18/25 03/18/25 History
insulin glargine 100 unit/mL (3 32 unit SC HS 03/18/25 03/18/25 History
mL) subcutaneous pen (Lantus
Solostar U-100 Insulin)
metformin 1,000 mg tablet 1,000 mg PO BID 03/18/25 03/18/25 History
morphine 15 mg tablet,extended 15 mg PO PRN PRN pain 03/18/25 03/18/25 History
release
sertraline 100 mg tablet 100 mg PO HS 03/18/25 03/18/25 History
sumatriptan succinate 25 mg tablet 25 mg PO PRN PRN headache 03/18/25 03/18/25 History
tamsulosin 0.4 mg capsule 0.4 mg PO .TWICE A WEEK 03/18/25 03/18/25 History
valsartan 40 mg tablet 160 mg PO DAILY 03/18/25 03/18/25 History
zolpidem 5 mg tablet 5 mg PO HS 03/18/25 03/18/25 History
Review of Systems
-
History Source: Patient
General: Reports No Symptoms
HEENT: Reports No Symptoms and Sore Throat
Respiratory: Reports SOB and Cough
Cardiac: Reports Chest Pain
Abdomen/GI: Reports No Symptoms
: Reports No Symptoms
Musculoskeletal: Reports No Symptoms
Skin: Reports No Symptoms
Neurological: Reports No Symptoms
Vascular: Reports No Symptoms
Physical Exam
Vital Signs
Temp 98.1 F 03/19/25 11:50
Temp route: Oral 03/19/25 11:50
Pulse 58 03/19/25 11:50
Rhythm: Normal sinus rhythm 03/19/25 08:30
With- PVC's Monomorphic 03/19/25 01:40
Resp Rate 16 03/19/25 11:50
Blood pressure 148/77 03/19/25 08:50
Blood pressure extremity used: Right upper arm 03/19/25 11:50
Position: Lying 03/19/25 11:50
MAP (cuff-Shellie Monitor) 98 03/19/25 07:42
SaO2 95 03/19/25 11:50
Oxygen Mode of Delivery Room air 03/19/25 11:50
Can the patient verbally communicate their pain? Yes 03/19/25 14:38
Pain scale ratin 03/19/25 14:38
Actual Weight 74.5 kg 03/19/25 01:04
Body Mass Index (BMI) 23.6 03/19/25 01:04
Labs
03/19/25 02:09
03/19/25 02:09
APTT Cancelled 03/19/25 16:00
Hemoglobin A1c 7.0 % (4.0-5.6) H 03/19/25 02:09
Troponin I 10.400 ng/ml H* 03/19/25 09:20
Exam
General: Well Developed and Well Nourished
HEENT: Normocephalic
Respiratory: Clear
Cardiac: S1/S2 and Regular Rhythm
GI: Soft and Non Tender
Rectal: Deferred by Provider
Skin: Warm and Dry
Neuro: AO x 3
Lymph: No Lymphadenopathy
Psych: Calm
Assessment / Plan
-
79-year-old male with past medical history listed above presented to [facility] emergency room today with complaints of chest pain. He is found to have elevated troponins and was taken to the cardiac Book Cutter where multivessel
disease was found. CT surgery was consulted for surgical workup.
#CAD
-Patient's case will be discussed with attending physician. Further details regarding surgical timing intervention will be determined after attending physicians full evaluation
-Routine preoperative cardiothoracic surgery orders will be initiated.
-STS risk stratification score will be calculated after preoperative testing is complete
-Continue nitroglycerin and heparin gtt per cardiology
[2025-03-19 16:22] LABS: Glucose - Point of Care 134 mg/dl (70-99)
--- NOTE | 2025-03-19 16:48 | PTCARENOTE ---
patient returned from cardiac cath lab radiology technologist with Right R band intact, will start letting air out in 3 hours as per ordered by Arelis DEE. patient aware of post cath protocol for right wrist.the cardiac cath lab radiology technologist started the IV heparin drip in the lab at 1545 at
1300units/hr will obtain PTT in 6 hours as per protocol. patient continues to c/o sore throat and headache pain, patient already obtained medications. patient stated 'my 6 year old grandson has a cold'.
--- NOTE | 2025-03-19 18:53 | ITS.CL.PN ---
[facility] - Procedure Note
Procedure
Procedure Note:
CARDIAC CATHETERIZATION REPORT
Date of Procedure: 03/19/2025
Referring: Dr. Miguel Hernandez MD
Indication: NSTEMI
PROCEDURE(S)
1. left heart catheterization
2. coronary angiography
3. aborted PCI to LAD
ACCESS: 6F right radial artery (closure: radial band)
CATHETERS
1. 6F JR4
2. 6F JL3.5
3. 6F EBU3.75 guide catheter
MODERATE SEDATION: 75 minutes of moderate sedation was utilized. An independent biomedical electronics technician was present to assist with and help manage the patient's level of consciousness and physiologic status.
HEMODYNAMIC DATA
LV 105/6 (EDP 12) mmHg
AO 101/56 (mean 72) mmHg
CORONARY ANGIOGRAPHY
Dominance: co-dominant
LM: Large vessel with 50% distal stenosis.
LAD: Large vessel giving rise to a single moderate caliber diagonal branch and wrapping around the apex. There are prior stents in the proximal and mid vessel. There is severe ISR of the proximal stent up to 95% in severity, there is a 60% stenosis
just before the takeoff of D1 and a 90% proximal stent edge stenosis in the mid vessel. There is otherwise diffuse moderate disease throughout the LAD. The diagonal has focal ostial 60 to 70% narrowing.
LCx: Large vessel giving rise to a large branching OM1, small LPL1 and small LPDA. There is a 50% stenosis in the proximal OM1, a focal 80% stenosis in the distal aspect of the superior branch of OM1, and a total occlusion of the inferior branch of
OM1 with late filling [id number] collaterals. The LPL has focal severe stenosis in the LPDA has subtotal occlusion with TRISTIN I flow distally.
RCA: Large vessel giving rise to an early acute marginal and small RPDA. There is diffuse mild-moderate disease throughout the mid to distal vessel. The RPDA tapers significantly in its distal aspect, supplying small septal branches.
Attempted PCI with FENG to LAD
After discussion with the referring collar band creaser it was felt that percutaneous revascularization would be preferable to surgical revascularization in this older patient with mild cognitive impairment and limited graft targets. CT surgery (
Manuel Lowe) was also consulted to review films and agreed that if percutaneous revascularization of the LAD could be achieved safely that would be a preferable strategy, and agreed to offer backup coronary artery bypass grafting if needed.
Additional heparin was given to achieve ACT greater than 300. With some difficulty due to the angulated takeoff of the LAD and the severe proximal stent ISR, a Whisper wire was placed in the distal LAD. A Runthrough wire was placed for protection in
the diagonal branch. A 2.0 mm semicompliant balloon was unable to be advanced through the proximal stent severe ISR despite use of a Guideliner. Similarly, a 1.5 mm Triples Mediatronic semi-compliant balloon would not advance to the distal stent edge lesion.
At this point the patient was having significant ST changes due to complete occlusion of flow in the LAD by equipment. He remained hemodynamically stable without chest pain. Given that equiptment delivery would evidently be quite challenging and
result in a prolonged procedure with significant risk, I made the decision to take the patient off the table with plan for Heart Team discussion. After wire removal there was no flow distal to the distal stent edge stenosis. Of note, only a wire had
passed through this portion of the LAD (no additional equipment) and there had been no difficulty wiring. Intracoronary nitroglycerin was given and flow returned to TRISTIN-3. ST changes returned to baseline and the patient was without chest pain. A TR
band was placed and the patient was maintained on heparin drip.
RADIATION: dose 1506 mGy; DAP 114 Gy*cm2; fluoroscopy time 22.9 min
CONCLUSIONS
1. Normal LV filling pressure and no aortic stenosis
2. Severe multivessel coronary artery disease as described with likely culprit stenosis involving severe ISR throughout the proximal to mid LAD
3. Aborted PCI to LAD as described
RECOMMENDATIONS
1. Heart team discussion to determine optimal revascularization plan. While of the severity and complexity of the disease would suggest surgical revascularization to be the optimal approach, there is concern that the patient's mild cognitive
impairment would put him at higher risk for neurologic sequela of a pump run. The CABG targets are suboptimal as a FARIA would provide antegrade flow to the apex but retrograde flow would be compromised by the mid LAD ISR. It is unclear whether an
additional graft to the diagonal would be possible. It is unclear that an additional graft to the OM1 would be helpful given relatively moderate disease in the inflow to that vessel.
2. Continue heparin drip.
3. Continue ASA daily.
4. Cont. home beta nu
5. If recurrent chest pain, notify cardiology and start nitro drip
6. NO P2Y12 given possible CT surgery
7. Echo in AM
Copy to: Dr. Molina Tolbert MD (collar band creaser); Liv Jimenez NP (PCP)
Signed: Krish Abreu MD, PhD
[2025-03-19 22:11] LABS: APTT 128.6 Sec (23.4-35.0)
[2025-03-19 22:30] LABS: Glucose - Point of Care 136 mg/dl (70-99)
[2025-03-20] VITALS (7 sets, daily range): BP systolic 126–159; BP diastolic 63–96; BMI 23.3
[2025-03-20] MEDS: AMBIEN 5 MG PO ×2 (00:22→22:25)
--- NOTE | 2025-03-20 00:30 | W.PN.UPDATE ---
Update Note
Progress Note Update
Cardiology Update Note:
-Nurse unable to remove TR-band following Left heart cath d/t bleeding, pt on heparin gtt, with PTT of 128.6
-Held Heparin for about 1.5 hrs prior to removal of TR- band via direct manual pressure x 10 min. Hemostasis achieved, no significant hematoma or ecchymosis noted
-Pressure dressing applied to right radial site. Resumed Heparin gtt after
-Will cont. to closely monitor
[2025-03-20] MEDS: MAALOX 30 ML PO (00:34)
--- NOTE | 2025-03-20 02:52 | PTCARENOTE ---
Rec'd pt. AAOx3 at beginning of shift, VSS, NSR on the monitor. No complaints of chest pain/discomfort; heparin gtt infusing as per order. TR band on right wrist. Started removing air at 1940; able to successfully remove 6 ml over an hour but
then site started to very slowly ooze when removing final 3 ml. 3 ml air re-instilled and multiple attempts made thereafter but slow oozing continued with any attempt to remove final 3 ml. Ed ALL Oliva notified, order to hold heparin &
re-instill 6 ml air into band obtained. Ed then came to bedside at 0005; removed band and held manual pressure - no further oozing assessed. Heparin gtt then re-started at previous rate (1200 units/hr) per Ed. Right radial dressing remains CDI;
no hematoma, radial pulse normal. Pt. resting quietly.
--- NOTE | 2025-03-20 03:02 | DOWNTIME ---
There was a [employer] Downtime on 03/20/2025 from 0100 to 03/20/2025 at 0215. Downtime documentation of patient's care, including medication administrations, has been reconciled in the electronic record per guidelines. Refer to the
patient's paper chart under the miscellaneous tab to see printed paper medication records and downtime forms.
[2025-03-20 04:14] LABS: B.E. 1.7 mmol/L; HCO3 26.6 mmol/L (21-28); O2 Saturation % 96.4 % (94-98); O2 Therapy RA; PCO2 42 mmHg (35-48); PO2 75 mmHg (83-108)
--- NOTE | 2025-03-20 05:19 | PTCARENOTE ---
Pt.'s own medication - consisting of a daily bill box/organizer, 2 boxes of Toujeo insulin pens (one opened, one sealed) and box of insulin pen needles were a found at pt.'s bedside and sent down to pharmacy for safekeeping. Yellow receipt placed
in chart. Pt. aware.
[2025-03-20 06:23] LABS: Hematocrit 40.5 % (39.0-52.0); Hemoglobin 13.1 g/dL (13.0-18.0); Mean Corp Hgb Conc. 32.3 g/dL (33.0-37.0); Mean Corpuscular Volume 79.6 fL (80.0-94.0); Platelet Count 260 10^3/uL (130-400); Red Cell Dist. Width 15.0 % (11.5-14.5)
[2025-03-20 06:32] LABS: INR 1.03; PT 13.9 Sec (11.4-14.6)
[2025-03-20 06:33] LABS: APTT 52.3 Sec (23.4-35.0)
[2025-03-20 06:54] LABS: ALT (SGPT) 28 U/L (0-50); AST (SGOT) 64 U/L (17-59); Albumin 4.1 g/dl (3.5-5.0); Alkaline Phosphatase 65 U/L (38-126); Blood Urea Nitrogen 14 mg/dl (9-20); Calcium 9.7 mg/dl (8.4-10.2); Carbon Dioxide 25 mmol/L (22-30); Chloride 104 mmol/L (98-107); Estimated Creatinine Clearance 71 ml/min; Glucose 116 mg/dl (70-99); Potassium 4.4 mmol/L (3.5-5.1); Sodium 135 mmol/L (135-145); Total Protein 6.2 g/dl (6.3-8.2); eGFR > 60.00
--- NOTE | 2025-03-20 08:08 | PTCARENOTE ---
Assumed care of the pt @ 0700. Pt is AAOx3 c/o h/a states improved after pain med given by sayda OLSON. SR on the monitor Hep gtt infusing @ 1400 units/HR titrating per protocol. Call polk within reach bed alarm in use.
[2025-03-20] MEDS: CRESTOR 20 MG PO (08:34)
[2025-03-20] MEDS: ZETIA 10 MG PO (08:34)
[2025-03-20] MEDS: PROSCAR 5 MG PO (08:34)
[2025-03-20] MEDS: ROXICODONE 15 MG PO ×2 (08:34→20:58)
[2025-03-20] MEDS: TRICOR 145 MG PO (08:34)
[2025-03-20] MEDS: ASPIR LOW (ENTERIC COATED) 81 MG PO (08:34)
[2025-03-20] MEDS: TENORMIN 50 MG PO (08:34)
[2025-03-20] MEDS: WELLBUTRIN XL (24 hour extended release) 300 MG PO (08:34)
[2025-03-20 08:43] LABS: Glucose - Point of Care 143 mg/dl (70-99)
[2025-03-20] MEDS: HEPARIN 25000 UNITS/250 ML IV (08:58)
--- NOTE | 2025-03-20 09:10 | W.PN.CD ---
Today's Communication / Plan
-
Increase activity
Heart team discussing revascularization
IV Heparin
Add IV NTG if more CP
Impression / Plan
-
Background: 79M with CAD (prior LAD PCI), hypertension, hypercholesterolemia, type 2 diabetes mellitus, requiring insulin, BPH, and migraines presented to the emergency department with a chief complaint of chest pain.
Outpatient painter spring: Dr. Tolbert at [facility]
NSTEMI, peak trop 11.9
- For Echo to assess LVEF
- Heart team to discuss revascularization options
Hypertension
-Valsartan held by primary for hyperkalemia (5.2), which improved
-Some blood pressures above goal, trend postprocedure
PVCs
-Couplet and triplet on telemetry, continue beta nu
- Tele now just PVCs no VT last 24 hrs
Hypercholesterolemia
-Lipid panel: TC 122, LDL 39, HDL 60, TG 115
-Continue rosuvastatin 20 mg, fenofibrate 160 mg, and Zetia 10 mg
Type 2 diabetes mellitus requiring insulin
-Insulin management per primary service, HgbA1c pending
Migraines, type unknown, acute on chronic
-Has ~3 migraines per week, takes sumatriptan & morphine
-Consider switching sumatriptan, per primary
Subjective:
No recurrent CP. No cath complications
Physical Exam
Vital Signs/Labs
Vital Signs
Temp Pulse Resp BP Pulse Ox
98.1 F 62 20 152/96 97
03/20/25 07:23 03/20/25 07:23 03/20/25 07:23 03/20/25 07:23 03/20/25 08:06
03/19/25 03/20/25 03/21/25
06:59 06:59 06:59
Actual Weight 74.5 kg 73.8 kg
03/20/25 06:08
03/20/25 06:08
PT 13.9 Sec (11.4-14.6) 03/20/25 06:08
INR 1.03 03/20/25 06:08
APTT 52.3 Sec (23.4-35.0) H 03/20/25 06:08
Triglycerides 115 mg/dl (10-149) 03/19/25 02:09
LDL Cholesterol, Calc 39 mg/dl 03/19/25 02:09
VLDL Cholesterol, Calc 23 mg/dl (0-30) 03/19/25 02:09
HDL Cholesterol 60 mg/dl 03/19/25 02:09
LAB Results
03/18/25 03/18/25 03/18/25
16:39 19:29 20:03
Troponin I 0.050 H* Cancelled 2.820 H* D
03/19/25 03/19/25 03/19/25
02:09 06:01 09:20
Troponin I 11.900 H* D Cancelled 10.400 H*
Physical Exam
Constitutional: No acute distress
EENT: Anicteric
Cardiovascular: Rhythm & rate is regular and Pedal edema is absent
Respiratory: Respiratory effort normal and Lungs clear to auscul.
GI: Soft and Distention absent
Neuro/Psych: AO x 3
Data Reviewed
-
Date of Service: March 20, 2025
[2025-03-20] MEDS: NOVOLOG FLEXPEN-LOW RESISTANCE SC ×2 (09:15→17:19)
--- NOTE | 2025-03-20 10:06 | PTCARENOTE ---
Pt off the floor for Ct Scan and US.
[2025-03-20 11:01] LABS: Glucose - Point of Care 152 mg/dl (70-99)
--- NOTE | 2025-03-20 12:03 | W.PN.UPDATE ---
Update Note
Progress Note Update
Patient was seen by Dr. Starkey and Dr. Lowe, was bedside. Consent obtained. Patient will be scheduled for a RA MIDCAB tomorrow.
[2025-03-20 12:18] LABS: ACT-LR - POC > 397 Seconds (116-155)
[2025-03-20] MEDS: NOVOLOG FLEXPEN-LOW RESISTANCE 1 UNITS SC (12:24)
[2025-03-20 12:30] LABS: COVID-19 Antigen Negative (Negative)
--- NOTE | 2025-03-20 12:35 | CM ---
Reviewed chart. Met with and Mrs. Rodriguez to review discharge plans. He states prior to admission he resides with his spouse in a one story home without any steps to enter. He states prior to admission he was independent with ambulation and
adls. He states he does not have any DME in the home. He states he has a prescription plan and uses [facility]. His spouse states she will be home to assist in his care if needed. Medical work-up in progress. The discharge plan is to return
home with his spouse and a home visit by the Transitional Care Nurse when medically stable.
We reviewed pre-op and post-op routines. We briefly reviewed the shower instructions. Gave him the Cardiothoracic Surgery Educational Booklet. We also reviewed restrictions including lifting and driving restrictions. We also discussed a home
visit by the Transitional Care Nurse. He is agreeable to a home visit. The plan is for Mid-CAB on 03/21/25.
[2025-03-20 13:12] LABS: APTT 86.4 Sec (23.4-35.0)
--- NOTE | 2025-03-20 14:28 | W.PN.UPDATE ---
Update Note
Progress Note Update
Procedure Type:�Isolated CABG
Perioperative Outcome Estimate %
Operative Mortality 1.83%
Morbidity & Mortality 6.21%
Stroke 1.4%
Renal Failure 0.752%
Reoperation 2.12%
Prolonged Ventilation 3.07%
Deep Sternal Wound Infection 0.169%
Long Hospital Stay (>14 days) 3.76%
Short Hospital Stay (<6 days)* 49.4%
Clinical Summary
Planned Surgery: Isolated CABG, Urgent, First cardiovascular surgery
Demographics: 79 year old, male, 73.8kg, 178cm, BMI: 23.3 kg/m�
Lab Values: Creatinine: 0.9 mg/dL, Hematocrit: 40.5%, WBC Count: 11.6 10�/�L, Platelet Count: 675829 cells/�L
PreOp Medications: Insulin diabetes control
Substance Abuse: Former smoker, Alcohol use: <=1 drink/week
Risk Factors / Comorbidities: Insulin-dependent Diabetes Mellitus, Hypertension, Family Hx of CAD
Cardiac Status: NYHA Class II, Ejection Fraction = 60%
Coronary Artery Disease: 3 vessels diseased, Left Main Stenosis >=50%, Proximal LAD Stenosis >=70%, Non-ST Elevation OK, OK: 1 to 7 Days
Valve Disease: Trivial/Trace MR, Trivial/Trace TR
Prev. Cardiac Interv: Previous PCI: Not during this episode of care
--- NOTE | 2025-03-20 15:06 | W.PN.HOSP.TC ---
Today's Communication/Plan
-
for OR tomorrow
flu/covid/strep throat neg
Assessment / Plan
Assessment / Plan
NSTEMI
CAD s/p 2 stents
- Trop max of 11.9, trending down
- on IV heparin drip
- continue ASA/statin/BB
- Status post heart cath showing multivessel CAD, difficult cath procedure
- Evaluated by cardiothoracic surgeon and patient plan for RA MIDCAB tomorrow
Essential HTN
- hold ARB
- continue BB
HLD - fibrates/statin
IDDM
- Hbga1c of 7.
- hold Metformin in case of cath
- Lantus at 1/2 dose of normal 32 units (16 units)
- SSI
Migraine
- have 3 episodes week
- avoid sumatriptan with active NM and vasoconstrictor effect
- provide oral narc. can provide IV compazine if needed
Sore throat
- Negative COVID/flu/strep
- Cepacol lozenges ordered
DVT ppx: IV heparin drip
Code: Full
Care plan discussed with cardiology/cardiothoracic surgery
Total time spent ; 54 mins
Anticipated Discharge: > 48 hours
Subjective/Interval History
-
Date of Service: March 20, 2025
No new complaints overnight
Objective Data
-
Labs:
Laboratory Results
03/20/25 03/20/25 03/20/25
03:59 06:08 12:48
WBC 11.6 H
Hgb 13.1
Hct 40.5
Plt Count 260
PT 13.9
INR 1.03
APTT 52.3 H 86.4 H
HCO3 26.6
Sodium 135
Potassium 4.4
Chloride 104
Carbon Dioxide 25
BUN 14
Creatinine 0.9
Glucose 116 H
Calcium 9.7
Total Bilirubin 0.6
AST 64 H
ALT 28
Alkaline Phosphatase 65
03/20/25
19:30
WBC
Hgb
Hct
Plt Count
PT
INR
APTT Pending
HCO3
Sodium
Potassium
Chloride
Carbon Dioxide
BUN
Creatinine
Glucose
Calcium
Total Bilirubin
AST
ALT
Alkaline Phosphatase
Vital Signs:
Vital Signs
Temp Pulse Resp BP Pulse Ox
98.5 F 64 20 143/72 93
03/20/25 11:56 03/20/25 12:00 03/20/25 11:56 03/20/25 11:56 03/20/25 11:56
I&O
03/19/25 03/20/25 03/21/25
06:59 06:59 06:59
Intake Total 480 / 480
Balance 480 / 480
Review of Systems
-
Respiratory: Reports No Symptoms
Cardiac: Reports No Symptoms
Abdomen/GI: Reports No Symptoms
Physical Exam
-
General: No Apparent Distress and Comfortable
HEENT: Negative Oxygen
Respiratory: Clear to Auscultation
Cardiac: Regular Rhythm and S1/S2; Negative Murmur or Rub
Musculoskeletal: No Edema
Neuro: Awake, Alert, Oriented, No Motor Deficits and Nonfocal/Grossly Intact
Psych: Calm
[2025-03-20 16:58] LABS: Glucose - Point of Care 127 mg/dl (70-99)
[2025-03-20 20:03] LABS: APTT 85.0 Sec (23.4-35.0)
[2025-03-20 21:49] LABS: Glucose - Point of Care 141 mg/dl (70-99)
--- NOTE | 2025-03-20 22:00 | PTCARENOTE ---
Received pt at change of shift resting in bed. SR on tele, HR in the 60's. pt denies any CP or SOB. Heparin gtt infusing per protocol. Right radial site intact and DEANN. Pamella Lopez, PIPE FOREMAN changed order to 8 units of Lantus for tonight d/t NPO
status. Went over plan of care with pt. Encouraged pt to call RN for assistance ambulating. Bed alarm on and audible. Call polk within reach.
pt clipped and CVOR prep completed. SANDIE Red in room to assess pt.
[2025-03-20] MEDS: LANTUS 0.08 UNITS SC (22:25)
[2025-03-20] MEDS: ZOLOFT 100 MG PO (22:25)
[2025-03-20] MEDS: LANTUS SC (22:29)
[2025-03-21] VITALS (23 sets, daily range): BP systolic 104–147; BP diastolic 52–95; BMI 23.1
--- NOTE | 2025-03-21 01:48 | PTCARENOTE ---
Going through pt chart, no CXR from this visit present. CVPA made aware. Thoracic spine xray from 03/05/25 in chart. No new orders.
[2025-03-21 03:42] LABS: Glucose - Point of Care 117 mg/dl (70-99)
[2025-03-21] MEDS: HEPARIN 25000 UNITS/250 ML IV (04:29)
[2025-03-21 05:01] LABS: Hematocrit 42.9 % (39.0-52.0); Hemoglobin 13.7 g/dL (13.0-18.0); Mean Corp Hgb Conc. 31.9 g/dL (33.0-37.0); Mean Corpuscular Volume 80.3 fL (80.0-94.0); Platelet Count 228 10^3/uL (130-400); Red Cell Dist. Width 15.0 % (11.5-14.5)
[2025-03-21 05:08] LABS: APTT 106.3 Sec (23.4-35.0)
[2025-03-21 05:41] LABS: Blood Urea Nitrogen 20 mg/dl (9-20); Calcium 9.7 mg/dl (8.4-10.2); Carbon Dioxide 24 mmol/L (22-30); Chloride 105 mmol/L (98-107); Estimated Creatinine Clearance 64 ml/min; Glucose 123 mg/dl (70-99); Potassium 4.4 mmol/L (3.5-5.1); Sodium 135 mmol/L (135-145); eGFR > 60.00
[2025-03-21 06:04] LABS: Glucose - Point of Care 120 mg/dl (70-99)
[2025-03-21] MEDS: PROTONIX 40 MG PO (06:05)
[2025-03-21] MEDS: LOPRESSOR 25 MG PO (06:05)
[2025-03-21] MEDS: MAGNESIUM OXIDE 400 MG PO (06:05)
[2025-03-21] MEDS: BACTROBAN 2% OINTMENT 1 APPLIC NASAL ×2 (06:05→19:40)
--- NOTE | 2025-03-21 06:08 | W.CVOR.SURPR ---
CVOR Surgeon Immed Pre Op
-
I have examined this patient prior to performance of the scheduled procedure.
The patient's condition is unchanged from the time of the dictated/written History and
Physical and the patient is able to undergo the scheduled procedure.
RA MIDCAB
--- NOTE | 2025-03-21 06:25 | PTCARENOTE ---
Second prep completed, pt in CVOR bed. Pre-op medications administered per order. HR 58, CVPA made aware. Hold order in for Atenolol this morning. Instructed RN to administer Lopressor--see SEP.
--- NOTE | 2025-03-21 07:41 | W.PN.CD ---
Today's Communication / Plan
-
robotic CABG today
Impression / Plan
-
Background: 79M with CAD (prior LAD PCI), hypertension, hypercholesterolemia, type 2 diabetes mellitus, requiring insulin, BPH, and migraines presented to the emergency department with a chief complaint of chest pain.
Outpatient manager learning: Dr. Tolbert at [facility]
NSTEMI, peak trop 11.9
- normal EF with no RWMA on echo
- challenging anatomy for percutaneous intervention with severe ISR of prox and mid LAD stents, balloon uncrossable with 6F guide and guideliner from the wrist, heart team discussion with ultimate decision for robotic MIDCAB to LAD-diag this AM;
backup option will be large bore groin access and atherectomy supported PCI
Hypertension
-Valsartan held by primary for hyperkalemia (5.2), which improved
-will revisit regimen post CABG
PVCs
-Couplet and triplet on telemetry, continue beta nu
-Tele now just PVCs no VT
Hypercholesterolemia
-Lipid panel: TC 122, LDL 39, HDL 60, TG 115
-Continue rosuvastatin 20 mg, fenofibrate 160 mg, and Zetia 10 mg
Type 2 diabetes mellitus requiring insulin
-Insulin management per primary service, HgbA1c 7.0
Migraines, type unknown, acute on chronic
-Has ~3 migraines per week, takes sumatriptan & morphine
-Consider switching sumatriptan, per primary
Subjective:
No recurrent CP. No cath complications. Ready for OR
Physical Exam
Vital Signs/Labs
Vital Signs
Temp Pulse Resp BP Pulse Ox
36.8 C 57 16 147/78 97
03/21/25 04:34 03/21/25 06:06 03/21/25 04:34 03/21/25 06:06 03/21/25 04:34
03/20/25 03/21/25 03/22/25
06:59 06:59 06:59
Actual Weight 73.8 kg 73 kg
03/21/25 04:48
03/21/25 04:48
PT 13.9 Sec (11.4-14.6) 03/20/25 06:08
INR 1.03 03/20/25 06:08
APTT 106.3 Sec (23.4-35.0) H 03/21/25 04:48
Triglycerides 115 mg/dl (10-149) 03/19/25 02:09
LDL Cholesterol, Calc 39 mg/dl 03/19/25 02:09
VLDL Cholesterol, Calc 23 mg/dl (0-30) 03/19/25 02:09
HDL Cholesterol 60 mg/dl 03/19/25 02:09
LAB Results
03/18/25 03/18/25 03/18/25
16:39 19:29 20:03
Troponin I 0.050 H* Cancelled 2.820 H* D
03/19/25 03/19/25 03/19/25
02:09 06:01 09:20
Troponin I 11.900 H* D Cancelled 10.400 H*
Physical Exam
Constitutional: Comfortable
Cardiovascular: Rhythm & rate is regular
Respiratory: Respiratory effort normal
Neuro/Psych: AO x 3
Data Reviewed
-
Date of Service: March 21, 2025
Medical Decision Making: Reviewed Test Results
EKG: Tracing Personally Visualized and interpreted
Echo: Tracing Personally Visualized and interpreted
Labs: Labs Reviewed by me
[2025-03-21] MEDS: NOVOLOG FLEXPEN-LOW RESISTANCE SC ×2 (07:57→13:40)
--- NOTE | 2025-03-21 08:17 | PTCARENOTE ---
Patient sent to the OR. NPO since midnight. Pre-op meds given at 0600. Ancef sent to OR
[2025-03-21 09:31] LABS: ACT+ - POC 134 Seconds (82-134)
[2025-03-21 09:57] LABS: Urine Character Clear (Clear)
[2025-03-21 10:06] LABS: B.E. - POC -1.4 mmol/L; Glucose - POC 131 mg/dl (70-99); HCO3 - POC 23 mmol/L (21-28); Hematocrit - POC 36 % PCV (42-52); Hemodilution- POC No; Hemoglobin Calculated - POC 12.3; Ionized Calcium - POC 1.18 mmol/L (1.15-1.33); Lactate - POC 0.49 mmol/L (0.36-0.75); O2 Saturation %Calculated-POC 99.8 % (94-98); PCO2 - POC 36 mmHg (35-48); PO2 - POC 218 mmHg (83-108); POC Comment PRE; Potassium - POC 3.9 mmol/L (3.5-5.1); Sodium - POC 136 mmol/L (136-145); Specimen Type - POC Arterial; pH - POC 7.41 (7.35-7.45)
[2025-03-21 10:31] LABS: ACT+ - POC 440 Seconds (82-134)
--- NOTE | 2025-03-21 10:50 | CM ---
pt in OR today, cm following
[2025-03-21 11:23] LABS: ACT+ - POC 447 Seconds (82-134)
[2025-03-21 11:50] LABS: Urine White Cell Cast 0-2 /LPF
[2025-03-21 12:06] LABS: ACT+ - POC 137 Seconds (82-134)
--- NOTE | 2025-03-21 12:16 | W.PN.CT.SURG ---
CT Surgery Operative Note
-
CARDIAC SURGERY OPERATIVE REPORT
Preoperative Diagnosis: Coronary Artery Disease with proximal LAD involvement and an fairly sized diagonal vessel, NSTEMI
Postoperative Diagnosis: Same
Procedure(s) Performed:
1. Robotic assisted MIDCAB (2-vessel bypass FARIA in situ to diagonal sequential to LAD)
2. Robotic assisted harvest of internal mammary artery with anterolateral mini thoracotomy for CABG
3. Transesophageal echocardiography
4. Transonic Flowprobe assessment of FARIA graft
Date of Surgery: 03/21/25
Comorbidities:
1. Coronary artery disease involving the proximal LAD with in-stent restenosis and significant disease crossing the diagonal vessel
2. NSTEMI
3. Mild cognitive dysfunction
4. Hyperlipidemia
5. Hypertension
6. BPH
7. Severe depression
Attending Surgeon: Manuel Lowe MD, MS
Assistants: Ange Jean PA-C (present and necessary to mate first, exchanging robotic instruments, retraction, suction, exposure, suture management, and wound closure under my direction), Rianna Starkey MD (did portions of the robotic harvest and
portions of the distal anastomosis)
Anesthesiology: Patrick Prieto MD and Arelis Sanchez CRNA
Scrub and Circulating RNs: Angelica Pagan, WESLEY, Gordon Charles RN
Ingredient Scaler: Mitchell Nunes CCP
Anesthesia: GETA
EBL: per perfusion records
Products: None
Indication(s) for Procedures: This is a 79-year-old male who presented hospital to an NSTEMI. He underwent attempted PCI but had difficulty delivering any balloons or stents down his LAD. He had previous in-stent restenosis. We initially offered
him for revascularization via sternotomy however given his lifestyle and social concerns, shared decision making was to pursue hybrid revascularization if necessary. The STS risk was discussed with the patient in the office and the shared decision
making was to pursue a 2-vessel bypass using his mammary artery to his diagonal sequential to LAD via a mini invasive approach.
Conduit(s) Quality/Internal Diameter:
FARIA -excellent, skeletonized, flow probe analysis, 60 cc/min, PI of 1.8 to the diagonal vessel with a 41 cc/min flow to the LAD with a pulsatile index of 2.7
Target(s) Quality/Internal Diameter:
LAD -good, heavily calcified but able to find a soft spot after the stent
Diagonal -able to accommodate a 1.5 mm shunt, decent size vessel decent quality target
Findings: His left trickle ejection fraction preoperatively was 60% with only mild regional wall motion abnormality towards the anterior septal apical segment. Following surgery this normalized. EF remained the same. There were no new regional
wall motion abnormalities at the inclusion of the case. The FARIA was harvested in a skeletonized fashion. The mammary graft was verified with Doppler probe to have excellent signals.
Description of Procedure: The patient was taken to the operating room. Their identity and procedure to be performed were verified and they were positioned supine on the operating table. Induction via general anesthesia with endotracheal intubation
was performed and central venous access and arterial monitoring were inserted. A preoperative transesophageal echocardiogram was performed to assess cardiac function and valvular function. The patient was then prepped and draped from chin to feet in
a sterile fashion and positioned with left side bumped up and left arm down. A preoperative time-out was performed with all members of the team present. A Veress needle was used to enter the chest after stopping ventilation with the left lung
verified by anesthesia. We started with slow pressure insufflation which they tolerated. An 8 mm port was inserted in the fourth intercostal space laterally and a camera was inserted verifying no intrathoracic iatrogenic injuries. 2 additional
ports (8 mm and 8mm) were placed along the midaxillary line on either side of the camera port. Single 12 mm air seal port was used for the farm assistant to pass instruments and sutures. The robotic platform was then docked and targeted towards the
mammary. A posterior pericardiotomy was created to facilitate drainage. The mammary was harvested in a skeletonized fashion. Once sufficient length was obtained, an anterior pericardiotomy was created to identify the distal target. This was done
using a vessel sealer. Full heparinization was given (a total of 35,000 units). 4 Hem-o-issa clips were used to occlude and divide the mammary distally at its bifurcation, and a single silk suture and clip was used to secure the mammary to the
pericardium overlying the LAD target. The robot platform was then undocked and the patient and a left anterior thoracotomy was created over the target vessel. Upon entering the thoracic cavity the mammary and LAD were visible. A thoracotomy
retractor was placed to facilitate exposure and a pericardial well was created. The ACT was confirmed to be over 400.
The cardiac suction stabilizer was used to isolate the diagonal target. The distal end of the mammary was prepped and incised on the underbelly towards the midportion. We verified orientation and length of the TAMIE and found brisk flow. A coronary
arteriotomy was created and enlarged with coronary gallagher scissors. A 1.5mm shunt was inserted to facilitate exposure and continued [place] coronary perfusion. A vjsr-bs-zpgr anastomosis was created with a 7-0 prolene. The bulldog on the mammary was
removed which demonstrated excellent graft flow. The shunt was then remove and demonstrated excellent [place] flow. Appropriate hemostasis was confirmed. The distal end of the mammary was then prepared in a similar fashion. The LAD was dissected
and a soft spot was found after the stent in the midportion. A coronary arteriotomy was then created a large pot scissors. This accommodated 1.75 mm shunt. The underbelly of the mammary was then sized and a vprr-yn-itgb anastomosis was created
with the distal end. This was done with 7-0 Prolene. The bulldog was then removed off of the midportion of the FARIA graft. The mammary graft was inspected and was free from kinking or twisting and flowprobe evaluation demonstrated good flow and
PI. A test dose of protamine was administered and the patient was monitored for any adverse reaction before resuming protamine. A 19F dunia drain into the pericardium and through the posterior pericardiotomy into the left chest. Fascia was
approximated with #1 vicryl suture. Local analgesia was administered to the surgical sites. The subcutaneous, dermis and epidermis were closed in layers in a running fashion. The skin wound was cleansed and dressed.
All instrument, sponge, and needle counts were confirmed to be correct x 2 at the end of the operation. The patient was transferred to the cardiac intensive care unit extubated in critical but stable condition.
I, Dr. Manuel Lowe, was present, scrubbed for, and performed all critical elements of this procedure.
Manuel Lowe MD, MS
Cardiothoracic Surgeon
[facility]
This operative dictation was created using the [employer] dictation system. Please excuse any grammatical, typographical, or 'sound alike' errors
[2025-03-21 12:46] LABS: Glucose - Point of Care 194 mg/dl (70-99)
[2025-03-21 12:53] LABS: B.E. -1.0 mmol/L; HCO3 24.3 mmol/L (21-28); O2 Saturation % 97.9 % (94-98); PCO2 42 mmHg (35-48); PO2 94 mmHg (83-108); Potassium 4.4 mMOL/L (3.5-5.1); Sodium 131 mMOL/L (136-145)
[2025-03-21 13:00] LABS: Hematocrit 37.2 % (39.0-52.0); Hemoglobin 12.1 g/dL (13.0-18.0); Platelet Count 209 10^3/uL (130-400)
[2025-03-21] MEDS: CARDENE 200 IV (13:02)
--- NOTE | 2025-03-21 13:06 | PTCARENOTE ---
received pt from the CVPA into 2265. Pt awake, writhing in pain, PATEL to command, PERRLA. Sinus rhythm on tele w HR 60, + peripheral pulses, no edema noted. Lungs clear, pox 98% on simple mask. Right IJ cordis w slick in place. Pt denies nausea,
armstrong draining yellow. CT x1 w minimal amount of red drainage. Cardene gtt initiated for SBP 150's. Pt medicated for pain as ordered. Post op CXR, EKG and labs obtained. Plan of care reviewed and questions encouraged.
[2025-03-21 13:07] LABS: Blood Urea Nitrogen 17 mg/dl (9-20); Estimated Creatinine Clearance 71 ml/min; Glucose 196 mg/dl (70-99); Magnesium 2.1 mg/dl (1.6-2.3)
[2025-03-21 13:10] LABS: APTT 27.8 Sec (23.4-35.0); INR 1.26; PT 16.3 Sec (11.4-14.6)
[2025-03-21] MEDS: ROXICODONE 5 MG PO ×3 (13:13→22:28)
[2025-03-21] MEDS: DILAUDID 0.5 MG IV ×2 (13:14→16:08)
[2025-03-21] MEDS: ANCEF 10 IV ×2 (13:38)
[2025-03-21] MEDS: CRESTOR PO (13:38)
[2025-03-21] MEDS: PROSCAR PO (13:38)
[2025-03-21] MEDS: NSS 500 IV (13:39)
[2025-03-21] MEDS: TRICOR PO (13:39)
[2025-03-21] MEDS: NOVOLOG FLEXPEN SC ×2 (13:39→17:39)
[2025-03-21] MEDS: ZETIA PO (13:39)
[2025-03-21] MEDS: ASPIR LOW (ENTERIC COATED) PO (13:40)
[2025-03-21 13:56] LABS: Glucose - Point of Care 186 mg/dl (70-99)
[2025-03-21] MEDS: TYLENOL PO (14:30)
[2025-03-21] MEDS: ROXICODONE PO (14:31)
[2025-03-21] MEDS: FLEXERIL 5 MG PO (15:02)
[2025-03-21] MEDS: NEURONTIN 100 MG PO ×2 (15:03→22:28)
[2025-03-21] MEDS: WELLBUTRIN XL (24 hour extended release) 300 MG PO (15:04)
--- NOTE | 2025-03-21 15:08 | PTCARENOTE ---
pt turned from side to side without large output from CT.
[2025-03-21 15:10] LABS: Glucose - Point of Care 118 mg/dl (70-99)
--- NOTE | 2025-03-21 16:03 | CON.INTV ---
Consultation
Consultation Request
Date/Time Consultation Requested: 03/21/2025
Date/Time Consultation Performed: 03/21/2025
Medical History
-
Chief Complaint: Chest pain
History of Present Illness:
Patient is a 79-year-old male who presented to the hospital and was admitted to hospitalist service on 03/18 with chest pain. Patient subsequently noted to have positive troponin and diagnosed with non-ST elevation MS. Patient has a prior history
of coronary artery disease s/p PCI. He was evaluated by cardiology service and noted to have multivessel coronary artery disease and subsequently was seen by cardiothoracic surgery and surgical revascularization was recommended. Today patient had
coronary artery bypass graft and postprocedure was admitted to CVICU. Strategic Planning Consultant consultation was requested for further input.
Past Medical History
Past Medical History: Reports Other (CAD s/p 2 stents, HTN, HLD, IDDM )
Past Surgical History: Reports Cardiac (cardiac stents)
Social History
Tobacco: Non-smoker
Alcohol: Occasional
Drug: None
Personal:
Living: With Family
Family History
Family History: Not pertinent
Allergies / Home Medications
Allergies / Home Medications
Allergies
Allergy/AdvReac Type Severity Reaction Status Date / Time
house dust Allergy sneezing, Verified 03/19/25 15:59
nasal
congestion
house dust mite Allergy sneezing, Verified 03/19/25 15:59
nasal
congestion
pollen extracts Allergy sneezing, Verified 03/19/25 15:59
nasal
congestion
Home Medications
�Medication �Instructions �Recorded �Confirmed �Last Taken �Type
atenolol 50 mg tablet 50 mg PO DAILY 09/05/21 03/18/25 Unknown History
bupropion HCl 300 mg 24 hr tablet, 300 mg PO DAILY 09/05/21 03/18/25 Unknown History
extended release
ezetimibe 10 mg tablet 10 mg PO DAILY 09/05/21 03/18/25 Unknown History
fenofibrate 160 mg tablet 160 mg PO DAILY 09/05/21 03/18/25 Unknown History
rosuvastatin 20 mg tablet 20 mg PO DAILY 09/05/21 03/18/25 Unknown History
oxycodone 15 mg tablet 15 mg PO Q12 3 days #6 tabs 09/07/21 03/18/25 Unknown Rx
aspirin 81 mg tablet,delayed 81 mg PO DAILY 03/18/25 03/18/25 Unknown History
release
dextroamphetamine-amphetamine 20 20 mg PO PRN PRN add 03/18/25 03/18/25 Unknown History
mg tablet (Adderall)
fexofenadine 30 mg tablet 60 mg PO DAILY 03/18/25 03/18/25 Unknown History
finasteride 5 mg tablet 5 mg PO DAILY 03/18/25 03/18/25 Unknown History
insulin glargine 100 unit/mL (3 32 unit SC HS 03/18/25 03/18/25 Unknown History
mL) subcutaneous pen (Lantus
Solostar U-100 Insulin)
metformin 1,000 mg tablet 1,000 mg PO BID 03/18/25 03/18/25 Unknown History
morphine 15 mg tablet,extended 15 mg PO PRN PRN pain 03/18/25 03/18/25 Unknown History
release
sertraline 100 mg tablet 100 mg PO HS 03/18/25 03/18/25 Unknown History
sumatriptan succinate 25 mg tablet 25 mg PO PRN PRN headache 03/18/25 03/18/25 Unknown History
tamsulosin 0.4 mg capsule 0.4 mg PO .TWICE A WEEK 03/18/25 03/18/25 Unknown History
valsartan 40 mg tablet 160 mg PO DAILY 03/18/25 03/18/25 Unknown History
zolpidem 5 mg tablet 5 mg PO HS 03/18/25 03/18/25 Unknown History
Review of Systems
-
Hematologic/Lymphatic: Other (All 14 systems reviewed and negative except as stated above in the history of present illness.)
Vitals / Labs / Diagnostic Testing
Vital Signs
Temp Pulse Resp BP Pulse Ox
97.9 F 67 18 111/58 97
03/21/25 15:00 03/21/25 15:00 03/21/25 15:00 03/21/25 15:00 03/21/25 15:00
Lab Data
03/21/25 12:42
Laboratory Results
03/20/25 03/20/25 03/21/25
03:59 19:44 04:48
PT
INR
APTT 85.0 H 106.3 H
pH 7.41
pCO2 42
pO2 75 L
HCO3 26.6
O2 Delivery Level Ra
03/21/25
12:42
PT 16.3 H
INR 1.26
APTT 27.8
pH 7.37
pCO2 42
pO2 94
HCO3 24.3
O2 Delivery Level
Microbiology
03/20/25 12:55 Throat/Pharynx Streptococcus Screen (NIKHIL) - Preliminary
Culture in Progress
03/20/25 12:55 Throat/Pharynx Streptococcus Rapid Screen - Final
Rapid Strep Screen (Group A) Negative
03/20/25 11:58 Nasal Swab Influenza Types A & B (MELI) - Final
Negative for Influenza A & B, NAAT
Negative results must be combined with clinical observations
and patient history.
Nucleic Acid Amplification test (NAAT)performed on the
[employer] platform.
Diagnostic Testing:
Physical Exam
-
HEENT: Normocephalic
Cardiovascular: S1/S2
Respiratory: Clear and Non-Labored Respirations
GI: Soft and Non Distended
Neurology: Awake and Alert
Skin: Warm
General: Comfortable
Assessment
-
79-year-old gentleman with multivessel coronary artery disease, admitted with NSTEMI, s/p coronary artery bypass graft POD # 0
Titrated off pressors per protocol, currently MAP of 75, not requiring any pressors.
ECHO reviewed with normal EF
Management of chest tubes per primary service
Extubated, currently saturating 97% on 4 L, respiratory rate 15, work of breathing normal.
Left lower lobe atelectasis noted, incentive spirometry recommended, increase activity as tolerated
Maintain supplement oxygen as needed
ABG, 7.30 .
No prior history of pulmonary disease, smoked briefly many years ago about 1 cigar/day, quit about 20 years ago.
NO prior PFTs available. Not on any inhaler therapy at home
Can add nebulizers if needed
Aspiration precautions
Encouraged incentive spirometry, OOB/ambulation/early mobility
Advance diet as tolerated following extubation
GI prophylaxis: Protonix
Monitor critical I/O's
Siddiqui/chest tube output
Hb/platelets postoperatively, mild drift
Trend CBC for now
Can transfuse if indicated for Hb <7, plt <50 in surgical patients
DVT prophylaxis including SCDs
Insulin protocol initiated and ongoing
Transition to SQ/off as indicated per team
Other medical diagnoses:
- Right middle lobe hamartoma. Outpatient follow-up with pulmonary clinic
- Hypertension, hyperlipidemia
- Insulin-dependent diabetes mellitus. Currently on insulin infusion
- Migraine headaches
- PVCs
Critical Care time [65] mins -- The patient is admitted for acute critical illness for the treatment of vital organ failure and/or prevention of further life-threatening conditions. Total care includes time spent in review of history, physical exam,
medications, hemodynamic/ventilator parameters, laboratory data, imaging and discussion with house staff, pharmacy, respiratory therapy, construction specialist, and nursing
Data:
CXR 03/2025: Moderate left perihilar atelectasis. New.
DYLON 03/2025: Overall LVEF is approximately 55% with mild anteroseptal apical hypokinesis.
Mild concentric left ventricular hypertrophy.
Stage II Diastolic dysfunction.
Mildly dilated left atrium.
Aortic sclerosis without stenosis.
Max AV gradient measures 10 mmHg, mean is 5 mmHg.
MAGO calculates to 2.1 cm2 by continuity equation.
Mild mitral regurgitation.
Mild posterior MV annular calcification noted.
Mild scattered calcified atheroma seen in the descending aorta and distal
aortic arch.
Proximal ascending aorta is calcified anteriorly near the ST junction.
ECHO 03/2025: 1. Normal biventricular global systolic function. Mild concentric LVH. LVEF 60%.
2. Mild mid anterior septal hypokinesis.
3. Aortic valve sclerosis without stenosis.
4. Trivial pericardial effusion.
5. No prior study available for comparison.
C 03/2025: 1. Normal LV filling pressure and no aortic stenosis
2. Severe multivessel coronary artery disease as described with likely culprit stenosis involving severe ISR throughout the proximal to mid LAD
3. Aborted PCI to LAD as described
CT Chest 03/2025: 1. No significant acute abnormality identified in the chest within the limits of unenhanced CT, as described above.
2. Severe coronary artery calcifications.
3. Right middle lobe hamartoma.
[2025-03-21] MEDS: LOW STRENGTH ASPIRIN 81 MG PO (16:07)
[2025-03-21] MEDS: PACERONE 200 MG PO (16:07)
[2025-03-21] MEDS: TORADOL 15 MG IV (16:07)
[2025-03-21 16:12] LABS: Glucose - Point of Care 90 mg/dl (70-99)
[2025-03-21 17:00] LABS: Glucose - Point of Care 92 mg/dl (70-99)
[2025-03-21 17:11] LABS: Hematocrit 36.9 % (39.0-52.0); Hemoglobin 11.9 g/dL (13.0-18.0); Platelet Count 213 10^3/uL (130-400)
--- NOTE | 2025-03-21 17:40 | PTCARENOTE ---
luis removed as ordered, Pt assisted OOB to chair, tolerated well.
[2025-03-21 18:28] LABS: Glucose - Point of Care 127 mg/dl (70-99)
[2025-03-21] MEDS: NOVOLIN R INSULIN INFUSION 100 IV (18:58)
[2025-03-21] MEDS: SENOKOT 8.6 MG PO (19:40)
[2025-03-21] MEDS: ANCEF 5 IV (19:40)
[2025-03-21] MEDS: TYLENOL 975 MG PO (19:43)
--- NOTE | 2025-03-21 20:30 | PTCARENOTE ---
Patient received from RN @ 1900 w/ call polk in reach. AOx3 w/ flat affect. SR on monitor. BP 107/52 HR 69. Heart sounds audible. Radial and pedal pulses present. No edema noted. Patient states tremors in hands is baseline. Lungs diminished
in bases. IS 500. POX 96% 2L NC. 1x mediastinal chest tube set to -20 suction draining red fluid. No crepitus, tidaling, or air leaks noted. Hypoactive bowel sounds w/ clear liquid diet. Siddiqui draining clear yellow urine. Left chest incision
well approximated SCRIPT GIRL. Punctures well approximated SCRIPT GIRL. RIJ cordis w/ slick and right PIV patent and intact. Insulin infusing per protocol. See worklist for more details.
[2025-03-21 20:50] LABS: Glucose - Point of Care 213 mg/dl (70-99)
[2025-03-21 22:04] LABS: Glucose - Point of Care 154 mg/dl (70-99)
[2025-03-21] MEDS: ZOLOFT 100 MG PO (22:28)
[2025-03-21] MEDS: PACERONE PO (22:54)
[2025-03-21] MEDS: DILAUDID 0.25 MG IV (23:19)
[2025-03-21 23:56] LABS: Glucose - Point of Care 81 mg/dl (70-99)
[2025-03-22] VITALS (35 sets, daily range): BP systolic 95–142; BP diastolic 55–94; PULSE 72; O2SAT 94–96; BMI 23.8
--- NOTE | 2025-03-22 00:06 | PTCARENOTE ---
Patient reassessed. SR BP 119/62 HR 65 POX 91% RA. See MAR for pain management.
[2025-03-22] MEDS: DILAUDID 0.25 MG IV (00:50)
--- NOTE | 2025-03-22 01:07 | PTCARENOTE ---
0.25 Dilaudid given early for pain per CT JORGE A Amaral. See MAR for details.
[2025-03-22 02:06] LABS: Glucose - Point of Care 133 mg/dl (70-99)
[2025-03-22] MEDS: ROXICODONE 5 MG PO ×2 (02:19→02:32)
[2025-03-22 02:20] LABS: Hematocrit 36.6 % (39.0-52.0); Hemoglobin 11.9 g/dL (13.0-18.0); Mean Corp Hgb Conc. 32.5 g/dL (33.0-37.0); Mean Corpuscular Volume 81.0 fL (80.0-94.0); Platelet Count 219 10^3/uL (130-400); Red Cell Dist. Width 14.7 % (11.5-14.5)
[2025-03-22 02:43] LABS: Blood Urea Nitrogen 22 mg/dl (9-20); Calcium 9.2 mg/dl (8.4-10.2); Carbon Dioxide 24 mmol/L (22-30); Chloride 105 mmol/L (98-107); Estimated Creatinine Clearance 71 ml/min; Glucose 130 mg/dl (70-99); Magnesium 2.2 mg/dl (1.6-2.3); Potassium 5.0 mmol/L (3.5-5.1); Sodium 134 mmol/L (135-145); eGFR > 60.00
[2025-03-22 03:56] LABS: Glucose - Point of Care 117 mg/dl (70-99)
--- NOTE | 2025-03-22 03:57 | W.PN.CT ---
Today's Communication / Plan
-
-pod #1
-no issues overnight
-on Cardene overnight to keep miller wood flour 90-110 -will liberate to 90-130 this am
-drips: Cardene 5, insulin
-CT output: med 50/150 in 12/24 hrs
-wean off Cardene
-d/c slic
-d/c Siddiqui
-encourage IS, OOB
Assessment / Plan
-
- s/p Robotic assisted MIDCAB (2-vessel bypass FARIA in situ to diagonal sequential to LAD) by Dr. Lowe on 03/21/25, pod #1
- Intraop DYLON: LVEF preop was 60% with only mild regional wall motion abnormality towards the anterior septal apical segment. Following surgery this normalized. EF remained the same. There were no new regional wall motion abnormalities at the
inclusion of the case.
- Coronary artery disease involving the proximal LAD with in-stent restenosis and significant disease crossing the diagonal vessel
- NSTEMI
- Mild cognitive dysfunction
- Hyperlipidemia
- Hypertension
- BPH
- Severe depression
- Acute postop blood loss anemia - stable, no transfusion
- Acute postop atelectasis
- Acute postop hypovolemia with subsequent hypervolemia
Discussed patient care with: Nursing and Care Team
Subjective
-
Date of Service: March 22, 2025
Objective Data
-
Lab Results
03/22/25 02:12
03/22/25 02:12
PT 16.3 Sec (11.4-14.6) H 03/21/25 12:42
INR 1.26 03/21/25 12:42
APTT 27.8 Sec (23.4-35.0) 03/21/25 12:42
Vital Signs
Vital Signs
Temp Pulse Resp BP Pulse Ox
98.7 F 63 11 100/59 95
03/22/25 03:48 03/22/25 03:30 03/22/25 03:30 03/22/25 03:30 03/22/25 03:48
CT Intake/Output/Weight
03/21/25 03/21/25 03/22/25
06:59 18:59 06:59
Intake Total 240 / 648 290.4 / 569.2 278.8 / 569.2
Output Total 580 / 1405 825 / 1405
Balance 240 / 648 -289.6 / -835.8 -546.2 / -835.8
SaO2: 95
Physical Exam
-
General: Awake and AOx3
Cardiovascular: Regular rate & rhythm, No Murmurs and No Rub
Respiratory: Decreased Breath Sounds
Sternum: Stable
Incision: Clean, Dry and Intact
Extremities: Edema +2 (2+ DPs b/l)
Abdomen: soft, nontender, nondistended, +bowel sounds
Data Reviewed
-
Lab Results: Results Reviewed
Medications: Active Meds Reviewed
Chest X-Ray: Report Reviewed and Image Reviewed
ECG: Report Reviewed and Image Reviewed
--- NOTE | 2025-03-22 04:19 | PTCARENOTE ---
Patient reassessed. SR on monitor. VSS. Labs and EKG obtained. [place] removed per CT JORGE A Amaral.
[2025-03-22] MEDS: ANCEF 5 IV ×2 (04:24→11:07)
[2025-03-22] MEDS: CARDENE 200 IV (05:11)
[2025-03-22 06:26] LABS: Glucose - Point of Care 104 mg/dl (70-99)
[2025-03-22] MEDS: ROXICODONE 10 MG PO (06:41)
[2025-03-22] MEDS: TYLENOL 975 MG PO ×3 (06:42→19:51)
[2025-03-22 07:19] LABS: B.E. - POC -1.8 mmol/L; Glucose - POC 203 mg/dl (70-99); HCO3 - POC 24 mmol/L (21-28); Hematocrit - POC 36 % PCV (42-52); Hemodilution- POC Yes; Hemoglobin Calculated - POC 12.1; Ionized Calcium - POC 1.16 mmol/L (1.15-1.33); Lactate - POC 0.82 mmol/L (0.36-0.75); O2 Saturation %Calculated-POC 99.7 % (94-98); PCO2 - POC 42 mmHg (35-48); PO2 - POC 217 mmHg (83-108); POC Comment POST; Potassium - POC 4.4 mmol/L (3.5-5.1); Sodium - POC 132 mmol/L (136-145); Specimen Type - POC Arterial; pH - POC 7.36 (7.35-7.45)
--- NOTE | 2025-03-22 08:00 | PTCARENOTE ---
pt received from previous RN, oriented, OOB in chair. SR on the monitor, HR 60s. SBP 90-120s. Cardene gtt off. palpable pulses, trace generalized edema. pt on RA 92% POX, diminished in bases. IS 500ml. acapella encourage. CTx1 to WS per Dr. Lowe. pt
abdomen s/n, denies n/v. diet tolerated well. hypoactive BS. DTV post armstrong removal. surgical incisions intact. chest tube site c/d/i. RIJ Cordis maintained. PIV. insulin gtt running as ordered. see worklist for VS, I&O, and assessment.
[2025-03-22 08:09] LABS: Glucose - Point of Care 121 mg/dl (70-99)
--- NOTE | 2025-03-22 08:14 | PN.DE.MGMTRT ---
Insulin Management
- -
03/22/2025: Diabetes Management Consult.
79 year old male who presented to the hospital for chest pain-->NSTEMI. PMH: CAD s/p PCI, HTN, HLD, IDDM
He was evaluated by cardiology service and noted to have multivessel coronary artery disease and subsequently was seen by cardiothoracic surgery and surgical revascularization was recommended. Now s/p Robotic assisted MIDCAB (2-vessel bypass FARIA in
situ to diagonal sequential to LAD)
Sees Endo Dr. Riley at [facility] for diabetes care. Was taking Glargine 32 units @ HS and Metformin 1000 mg BID prior to admission. Uses Gisell 3 plus for glucose monitoring. A1C 7.0%, Cr 09, eGFR >60
Pt awake, alert, oriented, sitting up in chair, c/o headache, able to discuss diabetes care plan
He is on Glycemic protocol, glucose range 104 to 133, receiving 1.3 to 2.6 units of insulin/hr
Will continue insulin infusion today and prepare to transition off infusion after breakfast tomorrow. Start Farxiga 10mg daily, 1st dose in AM
Give Lantus 10 units in AM 1 hr prior to turning off the drip,then 20 units @ HS and Metformin 1000 mg BID, 1st dose with breakfast tomorrow.
Discussed with nurse. Will cont to monitor
Diabetes History
- -
Type of Diabetes: 2 requiring insulin
Pre-Admission Diabetes Regimen
03/21/25 03/22/25
12:42 02:12
Creatinine 0.9 0.9
Lab Results
Hemoglobin A1c 7.0 % (4.0-5.6) H 03/19/25 02:09
Insulin Pump Settings
IP Diabetes Regimen
03/21/25 03/21/25 03/21/25
12:42 12:44 13:55
Glucose 196 H
POC Glucose 194 H 186 H
03/21/25 03/21/25 03/21/25
15:09 16:11 16:58
Glucose
POC Glucose 118 H 90 92
03/21/25 03/21/25 03/21/25
18:27 20:48 22:02
Glucose
POC Glucose 127 H 213 H 154 H
03/21/25 03/22/25 03/22/25
23:54 02:04 02:12
Glucose 130 H
POC Glucose 81 133 H
03/22/25 03/22/25 03/22/25
03:54 06:25 08:07
Glucose
POC Glucose 117 H 104 H 121 H
Patient Education
--- NOTE | 2025-03-22 08:28 | W.PN.INTV ---
Today's Communication / Plan
Recommendations
- Wean insulin infusion per protocol
- Incentive spirometry
- Out patient follow up with Pulmonary clinic for Hamartoma. Information added to discharge section
- Camp Dining Room Attendant service will sign off once patient is transferred out of CVICU.
Assessment
-
79-year-old gentleman with multivessel coronary artery disease, admitted with NSTEMI, s/p coronary artery bypass graft POD # 1
Titrated off pressors per protocol, off Cardene infusion as well
ECHO reviewed with normal EF
Management of chest tubes per primary service
Extubated, currently saturating 95% on Room air.
Left lower lobe atelectasis persistent, incentive spirometry recommended, increase activity as tolerated. Likely small effusion as well, chest tube in place
Maintain supplement oxygen as needed
No prior history of pulmonary disease, smoked briefly many years ago about 1 cigar/day, quit about 20 years ago.
No prior PFTs available. Not on any inhaler therapy at home
Can add nebulizers if needed
Aspiration precautions
Encouraged incentive spirometry, OOB/ambulation/early mobility
Advance diet as tolerated following extubation
GI prophylaxis: Protonix
Monitor critical I/O's
Siddiqui/chest tube output
Hb/platelets postoperatively, mild drift
Trend CBC for now
Can transfuse if indicated for Hb <7, plt <50 in surgical patients
DVT prophylaxis including SCDs
Insulin protocol initiated and ongoing
Transition to SQ/off as indicated per team
Other medical diagnoses:
- Right middle lobe hamartoma. Outpatient follow-up with pulmonary clinic. Reassured patient regarding benign nature of Hamartoma.
- Hypertension, hyperlipidemia
- Insulin-dependent diabetes mellitus. Currently on insulin infusion
- Migraine headaches
- PVCs
Critical Care time [45] mins -- The patient is admitted for acute critical illness for the treatment of vital organ failure and/or prevention of further life-threatening conditions. Total care includes time spent in review of history, physical exam,
medications, hemodynamic/ventilator parameters, laboratory data, imaging and discussion with house staff, pharmacy, respiratory therapy, elevator serviceman, and nursing
Data:
CXR 03/2025: Moderate left perihilar atelectasis. New.
DYLON 03/2025: Overall LVEF is approximately 55% with mild anteroseptal apical hypokinesis.
Mild concentric left ventricular hypertrophy.
Stage II Diastolic dysfunction.
Mildly dilated left atrium.
Aortic sclerosis without stenosis.
Max AV gradient measures 10 mmHg, mean is 5 mmHg.
MAGO calculates to 2.1 cm2 by continuity equation.
Mild mitral regurgitation.
Mild posterior MV annular calcification noted.
Mild scattered calcified atheroma seen in the descending aorta and distal
aortic arch.
Proximal ascending aorta is calcified anteriorly near the ST junction.
ECHO 03/2025: 1. Normal biventricular global systolic function. Mild concentric LVH. LVEF 60%.
2. Mild mid anterior septal hypokinesis.
3. Aortic valve sclerosis without stenosis.
4. Trivial pericardial effusion.
5. No prior study available for comparison.
LHC 03/2025: 1. Normal LV filling pressure and no aortic stenosis
2. Severe multivessel coronary artery disease as described with likely culprit stenosis involving severe ISR throughout the proximal to mid LAD
3. Aborted PCI to LAD as described
CT Chest 03/2025: 1. No significant acute abnormality identified in the chest within the limits of unenhanced CT, as described above.
2. Severe coronary artery calcifications.
3. Right middle lobe hamartoma.
Subjective Dataa
Subjective Data
Date of Service:
Date of Service: March 22, 2025
Subjective:
Patient comfortably sitting in chair in no acute distress.
Review of Systems
Genitourinary: Other (All 14 systems reviewed and negative except as stated above in the history of present illness.)
Objective Data
Data Reviewed
Vital Signs / I&O / Oxygen:
Vital Signs
Temp Pulse Resp BP Pulse Ox
98 F 63 19 95/58 92
03/22/25 08:00 03/22/25 08:01 03/22/25 08:01 03/22/25 08:01 03/22/25 08:01
Intake and Output
03/21/25 03/22/25 03/23/25
06:59 06:59 06:59
Intake Total 648 / 648 710.1 / 746.4 72.6 / 72.6
Output Total 1555 / 1555 0 / 0
Balance 648 / 648 -844.9 / -808.6 72.6 / 72.6
SaO2 92
Nasal Cannula flow liters per 2
minute
Physical Exam
General: Comfortable
HEENT: Normocephalic
Cardiovascular: S1-S2
Respiratory: Clear and Non-Labored Respirations
GI: Soft and Non Distended
Neurology: Awake and Alert
Skin: Warm
Labs/Micro/Reports
Lab Data
03/22/25 02:12
03/22/25 02:12
Laboratory Results
03/21/25
12:42
PT 16.3 H
INR 1.26
APTT 27.8
pH 7.37
pCO2 42
pO2 94
HCO3 24.3
O2 Delivery Level
Microbiology
03/20/25 12:55 Throat/Pharynx Streptococcus Screen (NIKHIL) - Preliminary
Culture in Progress
03/20/25 12:55 Throat/Pharynx Streptococcus Rapid Screen - Final
Rapid Strep Screen (Group A) Negative
03/20/25 11:58 Nasal Swab Influenza Types A & B (MELI) - Final
Negative for Influenza A & B, NAAT
Negative results must be combined with clinical observations
and patient history.
Nucleic Acid Amplification test (NAAT)performed on the
[employer] platform.
[2025-03-22] MEDS: PROTONIX 40 MG PO (09:05)
[2025-03-22] MEDS: PLAVIX 75 MG PO (09:05)
[2025-03-22] MEDS: NEURONTIN 100 MG PO ×3 (09:06→21:09)
[2025-03-22] MEDS: LOPRESSOR 12.5 MG PO ×2 (09:06→19:51)
[2025-03-22] MEDS: CRESTOR 20 MG PO (09:06)
[2025-03-22] MEDS: TRICOR 145 MG PO (09:06)
[2025-03-22] MEDS: MAGNESIUM OXIDE 400 MG PO ×2 (09:06→19:51)
[2025-03-22] MEDS: LOW STRENGTH ASPIRIN 81 MG PO (09:06)
[2025-03-22] MEDS: PROSCAR 5 MG PO (09:06)
[2025-03-22] MEDS: WELLBUTRIN XL (24 hour extended release) 300 MG PO (09:06)
[2025-03-22] MEDS: ZETIA 10 MG PO (09:06)
[2025-03-22] MEDS: PACERONE 200 MG PO ×3 (09:07→21:09)
[2025-03-22] MEDS: LIDOCAINE 4% PATCH 1 PATCH TOPICAL (09:07)
[2025-03-22] MEDS: SENOKOT 8.6 MG PO ×2 (09:07→19:51)
[2025-03-22] MEDS: FLEXERIL 5 MG PO (09:07)
[2025-03-22] MEDS: BACTROBAN 2% OINTMENT 1 APPLIC NASAL ×2 (09:08→19:52)
[2025-03-22] MEDS: NOVOLOG FLEXPEN 4 UNITS SC ×3 (09:08→18:01)
[2025-03-22 10:05] LABS: Glucose - Point of Care 165 mg/dl (70-99)
--- NOTE | 2025-03-22 10:22 | W.PN.ANS.POP ---
Anesthesia Post Operative
- Anesthesia Post Op Note
Vital Signs Stable-See Nursing Note: Yes
Airway Patent: Yes
Adequate Pain Control: Yes
Change in Mental Status: No
Current Postoperative Nausea & Vomiting: No
Anesthesia Complications: No
General Anesthetic Recall: No
Unplanned Admission: No
Post Op Hydration Adequate: Yes
[2025-03-22] MEDS: ROXICODONE 15 MG PO ×2 (10:45→19:52)
[2025-03-22] MEDS: XANAX 0.5 MG PO (11:07)
[2025-03-22] MEDS: NSS IV (11:07)
--- NOTE | 2025-03-22 11:28 | PTCARENOTE ---
pt VSS, no changes in assessment. pt ambulated in hallway w/ CR, pt denies CP, states has incisional pain but no exertional CP. IS and Acapella encouraged.
[2025-03-22] MEDS: MS CONTIN (EXTENDED RELEASE) 15 MG PO ×2 (11:56→21:09)
[2025-03-22 12:00] LABS: Glucose - Point of Care 177 mg/dl (70-99)
--- NOTE | 2025-03-22 13:19 | CM ---
priced farxiga/jardiance with pts perscript plan- [facility] [facility] (#[phone])- they are both tier 3 medications- he met his 590 deductible already.
farxiga- $102.35/month and Jardiance $107.41/ month. he pays 17% of cost for tier 3 meds. he asked me to ask his , i called twice and she does not picking table worker the cell. cm to wait to see if she comes in to ask her.
[2025-03-22 14:04] LABS: Glucose - Point of Care 86 mg/dl (70-99)
--- NOTE | 2025-03-22 15:19 | CM ---
spoke to at pts request- they agree to the preciado for farxigaRadha DM educ aware.
[2025-03-22 15:56] LABS: Glucose - Point of Care 169 mg/dl (70-99)
--- NOTE | 2025-03-22 16:14 | PTCARENOTE ---
pt VSS, oriented x4, forgetful at times. per this is baseline. pt ambulated in hallway w/ stand by assist. pt placed back to bed, CT dc'd as ordered, dressing c/d/i. bed alarm in place.
[2025-03-22 18:05] LABS: Glucose - Point of Care 147 mg/dl (70-99)
--- NOTE | 2025-03-22 18:15 | W.PN.CD ---
Today's Communication / Plan
-
DAPT
routine post op care
likely discharge tomorrow
Impression / Plan
-
Background: 79M with CAD (prior LAD PCI), hypertension, hypercholesterolemia, type 2 diabetes mellitus, requiring insulin, BPH, and migraines presented to the emergency department with a chief complaint of chest pain.
Outpatient pearl maker: Dr. Tolbert at [facility]
NSTEMI, peak trop 11.9
- normal EF with no RWMA on echo
- challenging anatomy for percutaneous intervention with severe ISR of prox and mid LAD stents, balloon uncrossable with 6F guide and guideliner from the wrist, heart team discussion with ultimate decision for robotic MIDCAB to LAD-diag 03/21 with
excellent result
- off drips, walking and feeling well
- cont. routine post op care
- DAPT on discharge
Hypertension
-Valsartan held by primary for hyperkalemia (5.2), which improved
-currently normotensive on beta un alone
PVCs
-cont. BB
-Tele now just PVCs no VT
Hypercholesterolemia
-Lipid panel: TC 122, LDL 39, HDL 60, TG 115
-Continue rosuvastatin 20 mg, fenofibrate 160 mg, and Zetia 10 mg
Type 2 diabetes mellitus requiring insulin
-Insulin management per primary service, HgbA1c 7.0
Migraines, type unknown, acute on chronic
-Has ~3 migraines per week, takes sumatriptan & morphine
-Consider switching sumatriptan, per primary
Subjective:
Doing well post- CABG.
Physical Exam
Vital Signs/Labs
Vital Signs
Temp Pulse Resp BP Pulse Ox
36.8 C 63 16 120/65 97
03/22/25 15:55 03/22/25 18:00 03/22/25 18:00 03/22/25 18:00 03/22/25 18:00
03/21/25 03/22/25 03/23/25
06:59 06:59 06:59
Actual Weight 73 kg 75.1 kg
03/22/25 02:12
03/22/25 02:12
PT 16.3 Sec (11.4-14.6) H 03/21/25 12:42
INR 1.26 03/21/25 12:42
APTT 27.8 Sec (23.4-35.0) 03/21/25 12:42
Magnesium 2.2 mg/dl (1.6-2.3) 03/22/25 02:12
Triglycerides 115 mg/dl (10-149) 03/19/25 02:09
LDL Cholesterol, Calc 39 mg/dl 03/19/25 02:09
VLDL Cholesterol, Calc 23 mg/dl (0-30) 03/19/25 02:09
HDL Cholesterol 60 mg/dl 03/19/25 02:09
Physical Exam
Constitutional: Comfortable
Cardiovascular: Rhythm & rate is regular
Respiratory: Respiratory effort normal
Neuro/Psych: AO x 3
Data Reviewed
-
Date of Service: March 22, 2025
Medical Decision Making: Reviewed Test Results
EKG: Tracing Personally Visualized and interpreted
Labs: Labs Reviewed by me
--- NOTE | 2025-03-22 18:18 | PTCARENOTE ---
pt OOB to chair w/ assist. chair alarm in place. IDEA MAN aware of bladder scan and that patient is still due to void.
[2025-03-22] MEDS: REMOVE LIDOCAINE PATCH 1 PATCH REMOVE (19:52)
--- NOTE | 2025-03-22 20:00 | PTCARENOTE ---
Assumed care of patient at 1900. Patient found oob in chair at bedside with spouse at bedside. Patient is AOx4, follows directions appropriately, moves all extremities. Patient can be forgetful and impulsive at times hx of falls placed on bed/chair
alarm. Lung sounds are diminished throughout with some wheezing noted on expiration, saO2 94% patient c/o increased WOB placed on 2L via NC for night. Heart sounds are audible, patient is SR on the monitor, normal palpable pulses and no observable
edema. Patient has active BS in all four quadrants and successfully voided at change of shift following armstrong removal. Patient has L lateral incision approx with surg adhesive DEANN, L chest incision approx with surg adhesive PROPERTY INVESTOR, and L lateral CT
wound with 4x4 gauze dressing CDI. Patient has R IJ cordis receiving KVO and R wrist PIV receiving insulin gtt. Patient c/o pain given scheduled pain medication. VSS. Call polk within reach.
[2025-03-22 20:07] LABS: Glucose - Point of Care 202 mg/dl (70-99)
[2025-03-22] MEDS: ZOLOFT 100 MG PO (21:09)
[2025-03-22 21:11] LABS: Glucose - Point of Care 183 mg/dl (70-99)
[2025-03-22 22:04] LABS: Glucose - Point of Care 111 mg/dl (70-99)
[2025-03-23] VITALS (23 sets, daily range): BP systolic 84–141; BP diastolic 53–102; BMI 23.9
--- NOTE | 2025-03-23 | PTCARENOTE ---
Patient reassessed. VSS. No c/o pain. Call polk within reach. Remains SR on the monitor.
[2025-03-23 00:05] LABS: Glucose - Point of Care 99 mg/dl (70-99)
[2025-03-23 02:15] LABS: Glucose - Point of Care 129 mg/dl (70-99)
--- NOTE | 2025-03-23 04:00 | PTCARENOTE ---
Patient reassessed. VSS. AM hygiene care provided. AM labs obtained. OOB to chair without incident. Call polk within reach.
[2025-03-23 04:13] LABS: Glucose - Point of Care 103 mg/dl (70-99)
--- NOTE | 2025-03-23 04:16 | W.PN.CT ---
Today's Communication / Plan
-
-pod #2
-no issues overnight
-drips: insulin
-transitioning to Lantus, Metformin and Farxiga today. Appreciate DM input
-monitor UO
-continue current meds
-encourage IS, started Mucinex
-OOB, ambulate
Assessment / Plan
-
- s/p Robotic assisted MIDCAB (2-vessel bypass FARIA in situ to diagonal sequential to LAD) by Dr. Lowe on 03/21/25, pod #2
- Intraop DYLON: LVEF preop was 60% with only mild regional wall motion abnormality towards the anterior septal apical segment. Following surgery this normalized. EF remained the same. There were no new regional wall motion abnormalities at the
inclusion of the case.
- Coronary artery disease involving the proximal LAD with in-stent restenosis and significant disease crossing the diagonal vessel
- NSTEMI
- Mild cognitive dysfunction
- Hyperlipidemia
- Hypertension
- BPH
- Severe depression
- Acute postop blood loss anemia - stable, no transfusion
- Acute postop atelectasis
- Acute postop hypovolemia with subsequent hypervolemia
Discussed patient care with: Nursing and Care Team
Subjective
-
Date of Service: March 23, 2025
Objective Data
-
PT 16.3 Sec (11.4-14.6) H 03/21/25 12:42
INR 1.26 03/21/25 12:42
APTT 27.8 Sec (23.4-35.0) 03/21/25 12:42
Vital Signs
Vital Signs
Temp Pulse Resp BP Pulse Ox
98.5 F 69 22 119/61 97
03/22/25 23:00 03/23/25 03:15 03/23/25 04:00 03/23/25 03:00 03/23/25 04:00
CT Intake/Output/Weight
03/22/25 03/22/25 03/23/25
06:59 18:59 06:59
Intake Total 419.7 / 746.4 202.0 / 332.4 130.4 / 332.4
Output Total 975 / 1555 130 / 430 300 / 430
Balance -555.3 / -808.6 72.0 / -97.6 -169.6 / -97.6
SaO2: 97
Physical Exam
-
General: Awake and AOx3
Cardiovascular: Regular rate & rhythm, No Murmurs and No Rub
Respiratory: Decreased Breath Sounds
Sternum: Stable
Incision: Clean, Dry and Intact
Abdomen: soft, nontender, nondistended, +bowel sounds
Extremities: Edema +1 (2+ DPs b/l)
Data Reviewed
-
Lab Results: Results Reviewed
Medications: Active Meds Reviewed
Chest X-Ray: Report Reviewed and Image Reviewed
ECG: Report Reviewed and Image Reviewed
[2025-03-23 05:14] LABS: Hematocrit 37.0 % (39.0-52.0); Hemoglobin 12.0 g/dL (13.0-18.0); Mean Corp Hgb Conc. 32.4 g/dL (33.0-37.0); Mean Corpuscular Volume 81.3 fL (80.0-94.0); Platelet Count 254 10^3/uL (130-400); Red Cell Dist. Width 15.1 % (11.5-14.5)
[2025-03-23 05:38] LABS: Blood Urea Nitrogen 30 mg/dl (9-20); Calcium 8.7 mg/dl (8.4-10.2); Carbon Dioxide 24 mmol/L (22-30); Chloride 104 mmol/L (98-107); Estimated Creatinine Clearance 64 ml/min; Glucose 102 mg/dl (70-99); Magnesium 2.4 mg/dl (1.6-2.3); Potassium 4.8 mmol/L (3.5-5.1); Sodium 136 mmol/L (135-145); eGFR > 60.00
[2025-03-23 06:18] LABS: Glucose - Point of Care 105 mg/dl (70-99)
[2025-03-23] MEDS: NOVOLIN R INSULIN INFUSION 100 IV (06:45)
[2025-03-23] MEDS: TYLENOL 975 MG PO (06:45)
--- NOTE | 2025-03-23 07:45 | PTCARENOTE ---
Received pt from production shift supervisor RN; pt AAOx3 and resting comfortably in chair; NSR on monitor and VSS: RIJ Cordis and PIV patent; Insulin infusing see flow sheet for details; Lungs diminished; IS 750; hypoactive bowel sounds; pt voiding yellow urine;
palpable pulses throughout; no edema noted; all surgical sites C/I/D; see nursing documentation for further details.
[2025-03-23 08:01] LABS: Glucose - Point of Care 123 mg/dl (70-99)
[2025-03-23] MEDS: XANAX 0.5 MG PO (08:02)
[2025-03-23] MEDS: MS CONTIN (EXTENDED RELEASE) 15 MG PO (08:02)
[2025-03-23] MEDS: ZETIA 10 MG PO (08:02)
[2025-03-23] MEDS: TRICOR 145 MG PO (08:02)
[2025-03-23] MEDS: MUCINEX 600 MG PO (08:02)
[2025-03-23] MEDS: ROXICODONE 15 MG PO (08:02)
[2025-03-23] MEDS: MAGNESIUM OXIDE 400 MG PO (08:02)
[2025-03-23] MEDS: PACERONE 200 MG PO ×2 (08:02→16:21)
[2025-03-23] MEDS: GLUCOPHAGE 1000 MG PO ×2 (08:03→16:27)
[2025-03-23] MEDS: PLAVIX 75 MG PO (08:03)
[2025-03-23] MEDS: NEURONTIN 100 MG PO ×2 (08:03→16:21)
[2025-03-23] MEDS: PROTONIX 40 MG PO (08:03)
[2025-03-23] MEDS: LOPRESSOR 12.5 MG PO (08:03)
[2025-03-23] MEDS: LOW STRENGTH ASPIRIN 81 MG PO (08:03)
[2025-03-23] MEDS: FARXIGA 10 MG PO (08:03)
[2025-03-23] MEDS: PROSCAR 5 MG PO (08:03)
[2025-03-23] MEDS: SENOKOT 8.6 MG PO (08:03)
[2025-03-23] MEDS: LIDOCAINE 4% PATCH TOPICAL (08:04)
[2025-03-23] MEDS: NOVOLOG FLEXPEN 4 UNITS SC (08:04)
[2025-03-23] MEDS: BACTROBAN 2% OINTMENT 1 APPLIC NASAL (08:04)
[2025-03-23] MEDS: LANTUS 0.1 UNITS SC (08:59)
--- NOTE | 2025-03-23 09:34 | W.PN.INTV ---
Today's Communication / Plan
Recommendations
- Hold additional sedating medications unless patient is fully awake alert and at baseline
- Transitions insulin infusion per protocol
Assessment
-
79-year-old gentleman with multivessel coronary artery disease, admitted with NSTEMI, s/p coronary artery bypass graft POD # 2
Titrated off pressors per protocol, off Cardene infusion as well. Current MAP of 84
ECHO reviewed with normal EF
Management of chest tubes per primary service
Extubated, currently saturating 92% on room air
Left lower lobe atelectasis persistent, incentive spirometry recommended, increase activity as tolerated. Likely small effusion as well, chest tube has since been removed. Left hemidiaphragm also appears elevated, question hemidiaphragm paralysis
Maintain supplement oxygen as needed
#. Acute encephalopathy. Patient appears bit drowsy during my evaluation, wakes up with stimulation. Discussed with nursing service. Suspect related to medications, patient is on MS Contin 15 twice daily scheduled, Xanax 0.5 daily, gabapentin 100
#3 times daily. Hold off additional sedating medications unless patient's mental status is back to baseline
No prior history of pulmonary disease, smoked briefly many years ago about 1 cigar/day, quit about 20 years ago.
No prior PFTs available. Not on any inhaler therapy at home
Can add nebulizers if needed
Aspiration precautions
Encouraged incentive spirometry, OOB/ambulation/early mobility
Advance diet as tolerated following extubation
GI prophylaxis: Protonix
Monitor critical I/O's
Siddiqui/chest tube output
Hb/platelets postoperatively, mild drift
Trend CBC for now
Can transfuse if indicated for Hb <7, plt <50 in surgical patients
DVT prophylaxis including SCDs
Insulin protocol initiated and ongoing
Transition to SQ/off as indicated per team
Other medical diagnoses:
- Right middle lobe hamartoma. Outpatient follow-up with pulmonary clinic. Reassured patient regarding benign nature of Hamartoma.
- Hypertension, hyperlipidemia
- Insulin-dependent diabetes mellitus. Currently on insulin infusion
- Migraine headaches
- PVCs
Critical Care time [45] mins -- The patient is admitted for acute critical illness for the treatment of vital organ failure and/or prevention of further life-threatening conditions. Total care includes time spent in review of history, physical exam,
medications, hemodynamic/ventilator parameters, laboratory data, imaging and discussion with house staff, pharmacy, respiratory therapy, jack tamp operator, and nursing
Data:
CXR 03/2025: Moderate left perihilar atelectasis. New.
DYLON 03/2025: Overall LVEF is approximately 55% with mild anteroseptal apical hypokinesis.
Mild concentric left ventricular hypertrophy.
Stage II Diastolic dysfunction.
Mildly dilated left atrium.
Aortic sclerosis without stenosis.
Max AV gradient measures 10 mmHg, mean is 5 mmHg.
MAGO calculates to 2.1 cm2 by continuity equation.
Mild mitral regurgitation.
Mild posterior MV annular calcification noted.
Mild scattered calcified atheroma seen in the descending aorta and distal
aortic arch.
Proximal ascending aorta is calcified anteriorly near the ST junction.
ECHO 03/2025: 1. Normal biventricular global systolic function. Mild concentric LVH. LVEF 60%.
2. Mild mid anterior septal hypokinesis.
3. Aortic valve sclerosis without stenosis.
4. Trivial pericardial effusion.
5. No prior study available for comparison.
LHC 03/2025: 1. Normal LV filling pressure and no aortic stenosis
2. Severe multivessel coronary artery disease as described with likely culprit stenosis involving severe ISR throughout the proximal to mid LAD
3. Aborted PCI to LAD as described
CT Chest 03/2025: 1. No significant acute abnormality identified in the chest within the limits of unenhanced CT, as described above.
2. Severe coronary artery calcifications.
3. Right middle lobe hamartoma.
Subjective Dataa
Subjective Data
Date of Service:
Date of Service: March 23, 2025
Subjective:
Patient comfortably sitting in chair in no acute distress.
Review of Systems
Genitourinary: Other (Patient appears somewhat drowsy)
Objective Data
Data Reviewed
Vital Signs / I&O / Oxygen:
Vital Signs
Temp Pulse Resp BP Pulse Ox
98.3 F 66 20 119/63 93
03/23/25 07:56 03/23/25 08:03 03/23/25 07:56 03/23/25 08:03 03/23/25 08:00
Intake and Output
03/22/25 03/23/25 03/24/25
06:59 06:59 06:59
Intake Total 710.1 / 746.4 355.0 / 355.0
Output Total 1555 / 1555 430 / 430
Balance -844.9 / -808.6 -75.0 / -75.0
SaO2 93
Nasal Cannula flow liters per 2
minute
Physical Exam
General: Comfortable
HEENT: Normocephalic
Cardiovascular: S1-S2
Respiratory: Clear and Non-Labored Respirations
GI: Soft and Non Distended
Neurology: Other (Patient appears somewhat drowsy, however wakes up with stimulation)
Skin: Warm
Labs/Micro/Reports
Lab Data
03/23/25 04:09
03/23/25 04:09
Laboratory Results
03/20/25
03:59
pH 7.41
pCO2 42
pO2 75 L
HCO3 26.6
O2 Delivery Level Ra
Microbiology
03/21/25 08:55 Urine Urine Culture - Final
NO GROWTH
03/20/25 12:55 Throat/Pharynx Streptococcus Screen (NIKHIL) - Final
No Beta Hemolytic Streptococci Isolated
03/20/25 12:55 Throat/Pharynx Streptococcus Rapid Screen - Final
Rapid Strep Screen (Group A) Negative
03/20/25 11:58 Nasal Swab Influenza Types A & B (MELI) - Final
Negative for Influenza A & B, NAAT
Negative results must be combined with clinical observations
and patient history.
Nucleic Acid Amplification test (NAAT)performed on the
magnetic.io platform.
[2025-03-23 11:55] LABS: Glucose - Point of Care 136 mg/dl (70-99)
[2025-03-23] MEDS: NOVOLOG FLEXPEN SC ×2 (12:12→16:27)
--- NOTE | 2025-03-23 12:13 | PTCARENOTE ---
Pt drowsy and resting comfortably in bed; bed alarm in place and on; NSR on monitor and VSS; updated CTPA on drowsiness.
--- NOTE | 2025-03-23 13:56 | W.PN.CD ---
Today's Communication / Plan
-
Patient appears comfortable. Sleeping just after receiving pain meds
remains in sinus rhythm
Patient is on low-dose metoprolol. Blood pressures relatively low
Continue current therapy
Impression / Plan
-
Background: 79M with CAD (prior LAD PCI), hypertension, hypercholesterolemia, type 2 diabetes mellitus, requiring insulin, BPH, and migraines presented to the emergency department with a chief complaint of chest pain.
Outpatient research associate policy: Dr. Tolbert at [facility]
NSTEMI, peak trop 11.9
- - challenging anatomy for percutaneous intervention with severe ISR of prox and mid LAD stents, balloon uncrossable with 6F guide and guideliner from the wrist, heart team discussion with ultimate decision for CABG.
robotic MIDCAB to LAD-diag 03/21
Stable and in NSR
DAPT post discharge
-
Hypertension- pre op . lower BPs post op. monitor as he recovers
PVCs
- BB
Hypercholesterolemia
-Lipid panel: TC 122, LDL 39, HDL 60, TG 115
-Continue rosuvastatin 20 mg, fenofibrate 160 mg, and Zetia 10 mg
Type 2 diabetes mellitus requiring insulin
-Insulin management per primary service, HgbA1c 7.0
Migraines, type unknown, acute on chronic
-Has ~3 migraines per week, takes sumatriptan & morphine
-Consider switching sumatriptan, per primary
Subjective:
Doing well post- CABG.
Physical Exam
Vital Signs/Labs
Vital Signs
Temp Pulse Resp BP Pulse Ox
98 F 62 20 96/56 95
03/23/25 12:38 03/23/25 12:30 03/23/25 12:38 03/23/25 12:30 03/23/25 12:38
03/22/25 03/23/25 03/24/25
06:59 06:59 06:59
Actual Weight 75.1 kg 75.7 kg
03/23/25 04:09
03/23/25 04:09
PT 16.3 Sec (11.4-14.6) H 03/21/25 12:42
INR 1.26 03/21/25 12:42
APTT 27.8 Sec (23.4-35.0) 03/21/25 12:42
Magnesium 2.4 mg/dl (1.6-2.3) H 03/23/25 04:09
Triglycerides 115 mg/dl (10-149) 03/19/25 02:09
LDL Cholesterol, Calc 39 mg/dl 03/19/25 02:09
VLDL Cholesterol, Calc 23 mg/dl (0-30) 03/19/25 02:09
HDL Cholesterol 60 mg/dl 03/19/25 02:09
Physical Exam
Constitutional: No acute distress
Cardiovascular: Rhythm & rate is regular
Respiratory: Wheeze Absent and Rhonchi Absent
GI: Soft
Data Reviewed
-
Date of Service: March 23, 2025
Medical Decision Making: Reviewed Test Results
Medical Tests (PFT, Pathology etc): Report Reviewed by me
Labs: Labs Reviewed by me
[2025-03-23] MEDS: TYLENOL PO (14:48)
[2025-03-23 15:32] LABS: Glucose - Point of Care 103 mg/dl (70-99)
--- NOTE | 2025-03-23 15:47 | PTCARENOTE ---
Assessment unchanged; pt ambulated hallways with RN; NSR on monitor and VSS; pt resting comfortably in chair.
--- NOTE | 2025-03-23 16:35 | W.DCSUMMARY ---
Discharge Summary
Discharge Data
Date of Admission: 03/18/25
Date of Discharge: 03/23/25
Total time spent discharging patient (in min): 45
-
Pending Results: No
Hospital Course
Primary care physician: Dr. Jimenez
Outpatient all source intelligence analyst: Dr. Tolbert
Inpatient consultants: Cardiology
Procedures:
s/p Robotic assisted MIDCAB (2-vessel bypass FARIA in situ to diagonal sequential to LAD) by Dr. Lowe on 03/21/25
Primary Diagnosis:
- Coronary artery disease involving the proximal LAD with in-stent restenosis and significant disease crossing the diagonal vessel
Secondary Diagnoses:
- NSTEMI
- Mild cognitive dysfunction
- Hyperlipidemia
- Hypertension
- BPH
- Severe depression
- Acute postop blood loss anemia - stable, no transfusion
- Acute postop atelectasis
- Acute postop hypovolemia with subsequent hypervolemia
HPI:
79-year-old male with past medical history of CAD s/p PCI to LAD, HTN, HLD, DM 2 on insulin, BPH, and migraines presents to [facility] emergency department with the chief complaint of chest pain. Chest pain radiating to his shoulders started yesterday
around 2 PM while sitting on the couch. Today while in the emergency room he was found to have an elevated troponin and an EKG with nonspecific ST abnormalities. He was started on a heparin infusion and taken to the cardiac Consumer Sales Representative. He was found
to have left main/LAD disease therefore CT surgery was consulted for CABG/MIDCAB evaluation.
Hospital course: Patient underwent robotic assisted MIDCAB on 03/21/2025 following admission for NSTEMI. This was performed Dr. Manuel Lowe. Please refer to separately dictated operative report for complete details. He was extubated in the
operating room. Invasive monitoring lines were discontinued on postop day 0. Patient was maintained on his chronic pain regimen at home which consisted of OxyContin as well as intermittent oxycodone at high doses.
Postop day #1: Chest tube was removed. Patient to continue progress well.
Postop day #2: Patient was cleared for discharge to home. Patient monico chest pain-free at the time of discharge. He will return in an outpatient basis for completion PCI of his obtuse marginal with Dr. Seymour.
Home medication changes: Valsartan was held at discharge due to hypotension. Please note he was not discharged on any additional narcotic pain medication as he is already on high doses of narcotics at home including long-acting OxyContin. We will
not be prescribing any further narcotic pain medications in the setting and he will reach out to his managing physicians for further pain management needs.
Discharge Plan
-
Patient Disposition: Home (Routine Discharge)
Discharge Diagnosis/Procedures: - s/p Robotic assisted MIDCAB (2-vessel bypass FARIA in situ to diagonal sequential to LAD) by Dr. Lowe on 03/21/25
- Coronary artery disease involving the proximal LAD with in-stent restenosis and significant disease crossing the diagonal vessel
- Non ST elevated myocardial infarction
- Mild cognitive dysfunction
- Hyperlipidemia
- Hypertension
- Benign prostatic hyperplasia
- Severe depression
- Acute postop blood loss anemia - stable, no transfusion
- Acute postop atelectasis
- Acute postop hypovolemia with subsequent hypervolemia
Diet: Low Cholesterol
Activity: No strenuous activity
Driving Restrictions: Not until seen by your Dr
Bathing Restrictions: OK to Shower
Other Services: Cardiac Rehab
Specialty Instructions: Weigh Daily- Call MD for wt gain/loss 3 lbs overnight/5 lbs in 1 week
Stand Alone Forms: DC Instructions- Cath/EP Lab
Referrals:
Bernabe Tolbert- Cardiology [Other] - 04/29/25 10:00 am
Referral Note: This APPT will be with Noemí Gasca NP
CT Transitional Care Nurse [Outside]
Referral Note:
The Cardiothoracic Transitional Care Nurse will call you to set up a visit in 1-2 days.
[facility]. Cardiac Rehab [Outside]
Referral Note: Cardiac Rehab Orientation appointment is on 04/22/2025@ 09:30am.
The Cardiac Rehab gym is located on the first floor of the [facility].
Olena Ortiz NP [Specified Professional Personl, Cardiology] - 04/11/25 11:00 am
Nuris Lyles MD [Active, Pulmonary Medicine] - in six weeks
Liv Jimenez CRNP [Family Provider, Family Practice]
Bettie Butts CRNP [Specified Professional Personl, Cardiac Surgery] - 04/18/25 10:00 am
Prescriptions:
New
metoprolol tartrate 25 mg Tablet
12.5 mg PO Q12 Qty: 30 2RF
clopidogrel 75 mg Tablet
75 mg PO DAILY Qty: 30 2RF
acetaminophen 325 mg Tablet
975 mg PO TID@0600,1400,2000 Qty: 20 0RF
Continued
atenolol 50 MG tablet
50 mg PO DAILY
ezetimibe 10 MG tablet
10 mg PO DAILY
rosuvastatin 20 MG tablet
20 mg PO HS
bupropion HCl 300 MG tablet extended release 24 hr
300 mg PO HS
fenofibrate 160 MG tablet
160 mg PO DAILY
oxycodone 15 MG tablet
15 mg PO Q12 3 Days Qty: 6 0RF
sumatriptan succinate 25 mg Tablet
25 mg PO PRN PRN (Reason: headache)
sertraline 100 mg Tablet
100 mg PO HS
aspirin 81 mg Tablet,Delayed Release (Dr/Ec)
81 mg PO HS
tamsulosin 0.4 mg Capsule
0.4 mg PO HS PRN (Reason: DIFFICULTY URINATING)
Rx Instructions:
pt chooses which days to take, not consistent
Doris 30 mg Tablet
60 mg PO DAILY
metformin 1,000 mg Tablet
1,000 mg PO BID
dextroamphetamine-amphetamine [Adderall] 20 mg Tablet
20 mg PO PRN PRN (Reason: ADD)
morphine 15 mg Tablet Extended Release
15 mg PO BID
finasteride 5 mg Tablet
5 mg PO DAILY
polyethylene glycol 3350 [Miralax] 17 gram Powder In Packet
17 g PO DAILY
alprazolam 0.5 mg tablet
0.5 mg PO DAILY
insulin glargine U-300 conc [Toujeo Max U-300 SoloStar] 300 unit/mL (3 mL) insulin pen
32 unit SC HS
Discontinued
valsartan 40 MG tablet
160 mg PO HS
Discharge Orders:
Discharge Patient (As Directed); Ordered 03/23/25
Ordered By: Jurgen Enriquez
Care Plan Goals
Care Plan Goals:
Problem: Readiness for enhanced knowledge related to diagnosis and treatment plan
Goal: Understand your diagnosis and treatment plan needs, including medications if applicable.
Instructions: Know your diagnosis, underlying causes and treatment plan options, including medications if applicable. Consult with your health care team to learn about your diagnosis and treatment plan, including medications if applicable.
Discharge Date and Time
Print Language: CZECH
--- NOTE | 2025-03-23 17:44 | PTCARENOTE ---
Pt showered with CHG soap; clerical associate removed; discharge paperwork gone over with pt and ; all questions answered.
--- NOTE | 2025-03-23 18:25 | PTCARENOTE ---
IV removed and medications collected from pharmacy.
--- NOTE | 2025-03-23 19:01 | PTCARENOTE ---
Pt discharged to home with .
== END 2025-03-23 19:01 | disposition home or self-care (01) | DRG 233 ==
LOC: CVICU 22:47
PROVIDERS: Anesthesiology; Clinical Nurse Specialist Acute Care; Emergency Medicine; Hospitalist; Nurse Practitioner; Nurse Practitioner Adult Health; Physician Assistant; Physician Assistant Medical; Student in an Organized Health Care Education/Training Program; ADMITTING PHYSICIAN Internal Medicine; ATTENDING PHYSICIAN Thoracic Surgery (Cardiothoracic Vascular Surgery); CONSULT PHYSICIAN Internal Medicine; CONSULT PHYSICIAN Internal Medicine Cardiovascular Disease; EMERGENCY PHYSICIAN Emergency Medicine; FAMILY PHYSICIAN Nurse Practitioner
PROC: B2111ZZ Fluoroscopy of Multiple Coronary Arteries using Low Osmolar Contrast (ICD-10-PCS; 2025-03-19)
PROC: 4A023N7 Measurement of Cardiac Sampling and Pressure, Left Heart, Percutaneous Approach (ICD-10-PCS; 2025-03-19)
PROC: B2151ZZ Fluoroscopy of Left Heart using Low Osmolar Contrast (ICD-10-PCS; 2025-03-19)
PROC: B24BZZ4 Ultrasonography of Heart with Aorta, Transesophageal (ICD-10-PCS; 2025-03-21)
PROC: 02110Z9 Bypass Coronary Artery, Two Arteries from Left Internal Mammary, Open Approach (ICD-10-PCS; 2025-03-21)
PROC: 8E0W0CZ Robotic Assisted Procedure of Trunk Region, Open Approach (ICD-10-PCS; 2025-03-21)
DX: T82.855A Stenosis of coronary artery stent, initial encounter (principal); I21.4 Non-ST elevation (NSTEMI) myocardial infarction; Q85.89 Other phakomatoses, not elsewhere classified; D62 Acute posthemorrhagic anemia; J98.11 Atelectasis; G93.49 Other encephalopathy; I25.10 Atherosclerotic heart disease of native coronary artery without angina pectoris; I10 Essential (primary) hypertension; E78.00 Pure hypercholesterolemia, unspecified; E11.9 Type 2 diabetes mellitus without complications; G89.29 Other chronic pain; M54.50 Low back pain, unspecified; I49.3 Ventricular premature depolarization; G43.909 Migraine, unspecified, not intractable, without status migrainosus; N40.0 Benign prostatic hyperplasia without lower urinary tract symptoms; F32.A Depression, unspecified; G31.84 Mild cognitive impairment of uncertain or unknown etiology; Y83.1 Surgical operation with implant of artificial internal device as the cause of abnormal reaction of the patient, or of later complication, without mention of misadventure at the time of the procedure; E86.1 Hypovolemia; E87.70 Fluid overload, unspecified; I95.81 Postprocedural hypotension; Z11.52 Encounter for screening for COVID-19; Z79.82 Long term (current) use of aspirin; I25.2 Old myocardial infarction; Z79.4 Long term (current) use of insulin; Z79.891 Long term (current) use of opiate analgesic; Z79.899 Other long term (current) drug therapy; Z82.49 Family history of ischemic heart disease and other diseases of the circulatory system; Z87.891 Personal history of nicotine dependence; Z95.5 Presence of coronary angioplasty implant and graft
CPT/HCPCS: 36600; 71045; 71250; 80048; 80053; 80061; 81003; 81015; 82248; 82330; 82565; 82805; 82947; 82962; 83036; 83690; 83735; 84132; 84302; 84484; 84520; 85014; 85018; 85025; 85027; 85049; 85347; 85610; 85730; 86803; 86850; 86900; 86901; 86920; 87070; 87086; 87502; 87811; 87880; 93005; 93306; 93312; 93320; 93325; 93458; 93880; 96374; 96376; 99152; 99153; 99291; C1725; C1769; C1894; Q9967